=== PATIENT | female | born 1945 | race Caucasian/White ===

== ENCOUNTER → 2016-10-15 | Outpatient (CLI) | payer MEDICAID, MEDICARE | LOC: RAD 12:27 | PROVIDERS: ATTEND Internal Medicine Endocrinology, Diabetes & Metabolism | DX: R10.10 Upper abdominal pain, unspecified (principal) | CPT/HCPCS: 74150 ==

== ENCOUNTER 2017-03-23 10:34 | Day surgery (SDC) | payer MEDICARE ==
[~2017-03-23 10:34] MED LIST: PROPOFOL INJ 200 MG/20 ML VIAL IV ONE
[2017-03-23 12:55] VITALS: BP 111/47
--- NOTE | 2017-03-23 13:22 | Operative Report ---
Operative Report DATE OF SURGERY: 03/23/17 Operative Report: The risks, benefits and alternatives of the procedure including risks of bleeding, perforation requiring surgery are explained to the patient detail and informed consent was obtained. Patient was taken back to the endoscopy suite and placed in the left, lateral decubital position. Timeout was called. Propofol medications administered. A rectal examination was done which did not reveal any masses, tears or fissures. An Olympus videoscope was inserted into the patient's rectum. Scope was then carefully advanced all the way to the cecum. The cecum was identified by the usual anatomical landmarks including the ileocecal valve as well as appendiceal office. Photodocumentation is obtained. Prep is good. Scope was then sequentially pulled back via the various segments of the colon including the ascending colon, hepatic flexure, transverse colon, splenic flexure, descending colon finding to the rectosigmoid portions of the colon. Retroflexion maneuver was performed. PREOPERATIVE DIAGNOSIS: Personal history of a polyp. POSTOPERATIVE DIAGNOSIS: Polyp noted in the area of the sigmoid area status post snare polypectomy and retrieved. Diverticulosis. Internal hemorrhoids OPERATION: Colonoscopy with snare polypectomy SURGEON: DANIEL PARRA ANESTHESIA: LMAC TISSUE REMOVED OR ALTERED: Polyp was retrieved COMPLICATIONS: None. ESTIMATED BLOOD LOSS: None. INTRAOPERATIVE FINDINGS: As described above. PROCEDURE: Patient tolerated the procedure well. No immediate postprocedure complications are noted. Patient discharged in good condition. Discharge date 03/23/2017. Discharge diet: Regular. Discharge activity: Regular. 2-3 week follow-up to discuss findings. Patient is instructed to call the office or proceed to the emergency room should there be any further problems or questions. We will wait on pathology. 3-5 year surveillance colonoscopy.
== END 2017-03-23 12:40 | disposition home or self-care (01) ==
LOC: END 10:34
PROVIDERS: ATTEND Internal Medicine Gastroenterology
PROC: 0DBN8ZX Excision of Sigmoid Colon, Via Natural or Artificial Opening Endoscopic, Diagnostic (ICD-10-PCS; principal; 2017-03-23 14:30)
DX: D12.5 Benign neoplasm of sigmoid colon (principal); K57.30 Diverticulosis of large intestine without perforation or abscess without bleeding; K64.8 Other hemorrhoids; E11.9 Type 2 diabetes mellitus without complications; E03.9 Hypothyroidism, unspecified; Z87.891 Personal history of nicotine dependence; Z79.84 Long term (current) use of oral hypoglycemic drugs; Z79.4 Long term (current) use of insulin; Z79.899 Other long term (current) drug therapy
CPT/HCPCS: 45385; 82962; 88305 ×2; J2704; 810

== ENCOUNTER 2017-12-16 19:44 | Inpatient (IN) | payer MEDICARE, MEDICAID ==
--- NOTE | 2017-12-16 20:45 | ER Document Report ---
ED General - General Chief Complaint: Fever Stated Complaint: FEVER Time Seen by Provider: 12/16/17 20:04 Mode of Arrival: Wheelchair Information source: Patient, Relative Notes: Patient is a 72-year-old female with active ALL currently being treated by Dr. Morales as well as at [facility]. Patient reports that she has had weakness with a wet cough since Thursday. Reports that today she spiked a temperature of 99.9. Patient denies any pain, nausea, vomiting or diarrhea. Patient's family member reports that she had blood work here at [facility] yesterday and was transfused 2 units of packed red cells. Patient's family further states that her oncologist at [facility] called and told her to withhold all chemo at this point until her blood levels are stabilized. TRAVEL OUTSIDE OF THE [place] IN LAST 30 DAYS: No - Related Data Allergies/Adverse Reactions: No Known Allergies Allergy (Verified 03/23/17 11:21) Past Medical History - General Information source: Patient, Relative - Social History Smoking Status: Never Smoker Cigarette use (# per day): No Chew tobacco use (# tins/day): No Smoking Education Provided: No Frequency of alcohol use: None Drug Abuse: None Family History: Reviewed & Not Pertinent - Past Medical History Cardiac Medical History: Denies: Hx Coronary Artery Disease, Hx Heart Attack, Hx Hypertension Pulmonary Medical History: Denies: Hx Asthma, Hx Bronchitis, Hx COPD, Hx Pneumonia Neurological Medical History: Denies: Hx Cerebrovascular Accident, Hx Seizures Malignancy Medical History: Reports: Other - ALL Musculoskeltal Medical History: Denies Hx Arthritis - Immunizations Hx Diphtheria, Pertussis, Tetanus Vaccination: No Hx Pneumococcal Vaccination: 04/26/17 Physical Exam - Vital signs Vitals: Temp Pulse Resp BP Pulse Ox 98.2 F 73 16 149/64 H 98 12/16/17 19:49 12/16/17 19:49 12/16/17 19:49 12/16/17 19:49 12/16/17 19:49 Course - Re-evaluation Re-evalutation: Patient is a 72-year-old female is a well-appearing, patient of Dr. Morales currently being treated for ALL. Patient comes in for complaints of weakness with wet cough x 2 days as well as a temperature at home of 99.9 that was started today. Patient placed on neutopenic precautions on arrival to ED. Patient's initial CBC reveals a white blood count of 0.6 and a platelet count of 29 which are both similar to labs drawn 2 days ago at our facility. Patient' s chest x-ray is unremarkable with no consolidations. EKG reveals a sinus rhythm, normal axis, with no ST segment deviation and is unchanged from previous EKG on record. Patient has remained remained afebrile and hemodynamically stable during her emergency department stay. Will give patient oral potassium replacement for a potassium of 3.1. Spoke with Dr. Morales who recommends that patient be started on imipenem pending results of urine culture and blood culture. Dr. Rhoades would like the patient to be admitted under the hospitalist service and she will consult. Hospitalist , Dr. Sutherland agrees to admit patient to his service. - Vital Signs Vital signs: Temp Pulse Resp BP Pulse Ox 98.6 F 62 16 119/55 L 99 12/18/17 03:09 12/18/17 03:09 12/18/17 03:09 12/18/17 03:09 12/18/17 03:09 - Laboratory Result Diagrams: 12/17/17 04:10 12/17/17 04:10 Laboratory results interpreted by me: 12/16/17 12/16/17 12/16/17 21:15 22:20 22:20 WBC 0.6 L* RBC 3.06 L Hgb 9.9 L Hct 28.3 L RDW 19.0 H Plt Count 29 L* Seg Neutrophils % 17.7 L Lymphocytes % 65.4 H Eosinophils % 11.7 H Basophils % 2.1 H Absolute Neutrophils 0.1 L Absolute Lymphocytes 0.4 L Absolute Monocytes 0.0 L VBG pH Potassium 3.1 L Glucose 273 H POC Glucose 304 H Lactic Acid Magnesium Total Protein 5.7 L Albumin 3.2 L Urine Glucose (UA) Urine Urobilinogen 12/16/17 12/16/17 12/16/17 22:20 22:20 22:20 WBC RBC Hgb Hct RDW Plt Count Seg Neutrophils % Lymphocytes % Eosinophils % Basophils % Absolute Neutrophils Absolute Lymphocytes Absolute Monocytes VBG pH 7.45 H Potassium Glucose POC Glucose Lactic Acid 2.8 H Magnesium Total Protein Albumin Urine Glucose (UA) >=500 H Urine Urobilinogen 4.0 H 12/16/17 22:20 WBC RBC Hgb Hct RDW Plt Count Seg Neutrophils % Lymphocytes % Eosinophils % Basophils % Absolute Neutrophils Absolute Lymphocytes Absolute Monocytes VBG pH Potassium Glucose POC Glucose Lactic Acid Magnesium 1.5 L Total Protein Albumin Urine Glucose (UA) Urine Urobilinogen Discharge - Discharge Clinical Impression: Neutropenia Qualifiers: Neutropenia type: unspecified Qualified Code(s): D70.9 - Neutropenia, unspecified Condition: Stable Disposition: ADMITTED INPATIENT Admitting Provider: Hospitalist Unit Admitted: Telemetry
--- NOTE | 2017-12-16 21:01 | RADIOLOGY REPORT (SQ) ---
EXAM DESCRIPTION: CHEST SINGLE VIEW COMPLETED DATE/TIME: 12/16/2017 8:34 pm REASON FOR STUDY: fever COMPARISON: None. EXAM PARAMETERS: NUMBER OF VIEWS: One view. TECHNIQUE: Single frontal radiographic view of the chest acquired. RADIATION DOSE: NA LIMITATIONS: None. FINDINGS: LUNGS AND PLEURA: No opacities, masses or pneumothorax. No pleural effusion. MEDIASTINUM AND HILAR STRUCTURES: No masses. Contour normal. HEART AND VASCULAR STRUCTURES: Heart normal in size. Normal vasculature. BONES: No acute findings. HARDWARE: Vascular access port. OTHER: No other significant finding. IMPRESSION: NO ACUTE RADIOGRAPHIC FINDING IN THE CHEST. TECHNICAL DOCUMENTATION: JOB ID: [id number] [employer]- All Rights Reserved Reading location - IP/workstation name: [email or web address]
[2017-12-16 22:42] LABS: HEMATOCRIT 28.3 % (36.0-47.0); HEMOGLOBIN 9.9 g/dL (12.0-15.5); MEAN CORPUSCULAR HEMOGLOBIN 32.4 pg (27.0-33.4); RED BLOOD COUNT 3.06 10^6/uL (3.72-5.28)
[2017-12-16 22:45] LABS: APPEARANCE,URINE CLEAR; BILIRUBIN,URINE NEGATIVE (NEGATIVE); COLOR,URINE YELLOW; GLUCOSE, URINE >=500 mg/dL (NEGATIVE); INTERNATIONAL RATION (INR) 0.93; KETONES,URINE NEGATIVE (NEGATIVE); LEUKOCYTE ESTERASE,URINE NEGATIVE (NEGATIVE); NITRITE,URINE NEGATIVE (NEGATIVE); PROTEIN,URINE NEGATIVE (NEGATIVE); PROTHROMBIN TIME 12.9 SEC (11.4-15.4); URINE SPECIFIC GRAVITY 1.021; VENOUS BLOOD BASE EXCESS 1.2 mmol/L; VENOUS BLOOD HCO3 25.1 mmol/L (20-32); VENOUS BLOOD PCO2 37.1 mmHg (35-63); VENOUS BLOOD PH 7.45 (7.30-7.42)
[2017-12-16 23:01] LABS: ALANINE AMINOTRANSFERASE 52 U/L (9-52); ALBUMIN 3.2 g/dL (3.5-5.0); ALKALINE PHOSPHATASE 77 U/L (38-126); ANION GAP 11 (5-19); ASPARTATE AMINO TRANSFERASE 27 U/L (14-36); BILIRUBIN,DIRECT 0.3 mg/dL (0.0-0.4); BILIRUBIN,TOTAL 1.3 mg/dL (0.2-1.3); BLOOD UREA NITROGEN 9 mg/dL (7-20); CALCIUM 8.9 mg/dL (8.4-10.2); CARBON DIOXIDE 27 mmol/L (22-30); CHLORIDE 100 mmol/L (98-107); GLUCOSE 273 mg/dL (75-110); POTASSIUM 3.1 mmol/L (3.6-5.0); SODIUM 137.7 mmol/L (137-145); TOTAL PROTEIN 5.7 g/dL (6.3-8.2)
[2017-12-16 23:03] LABS: ABSOLUTE LYMPHOCYTES (AUTO) 0.4 10^3/uL (0.5-4.7); ABSOLUTE NEUT (AUTO) 0.1 10^3/uL (1.7-8.2); BASOPHILS % (AUTO) 2.1 % (0-2); EOSINOPHILS % (AUTO) 11.7 % (0-6); LYMPHOCYTES % (AUTO) 65.4 % (13-45); MONOCYTES % (AUTO) 3.1 % (3-13); SEGMENTED NEUTROPHILS % (AUTO) 17.7 % (42-78); TOTAL CELLS COUNTED % (AUTO) 100 %
[2017-12-16 23:04] LABS: ABSOLUTE EOSINOPHILS # (AUTO) 0.1 10^3/uL (0.0-0.6)
[2017-12-16 23:15] LABS: WHITE BLOOD COUNT 0.6 10^3/uL (4.0-10.5)
[2017-12-16 23:16] LABS: MEAN CORPUSCULAR VOLUME 93 fl (80-97); PLATELET COUNT 29 10^3/uL (150-450)
[2017-12-16] MEDS ORDERED: IMIPENEM/CILASTATIN SODIUM INJ 500 MG VIAL IV ONE (23:23)
[2017-12-17] MEDS ORDERED: POTASSIUM CHLORIDE 10 MEQ TABLET.SA PO ONE (00:46)
[2017-12-17] MEDS ORDERED: IPRATROPIUM/ALBUTEROL 0.5-2.5 MG/3 ML AMPUL NEB PRN (01:24)
[2017-12-17] MEDS ORDERED: MAG HYDROX/AL HYDROX/SIMETH SUSP 30 ML UDCUP PO PRN (01:24)
[2017-12-17] MEDS ORDERED: GLUCAGON,HUMAN RECOMB 1 MG INJ IM PRN (01:28)
[2017-12-17] MEDS ORDERED: DEXTROSE 50%-WATER 25 GM/50 ML DISP.SYRIN IV PRN ×2 (01:28)
[2017-12-17] MEDS ORDERED: INSULIN LISPRO 100 UNIT/ML 3 ML VIAL SUBCUT PRN (01:28)
[2017-12-17] MEDS ORDERED: DEXTROSE 40% GEL 15 GM TUBE PO PRN ×2 (01:28)
[2017-12-17] MEDS ORDERED: NORMAL SALINE 1000 ML 1,000 ML IV SCH (01:30)
[2017-12-17] MEDS ORDERED: IMIPENEM/CILASTATIN SODIUM INJ 500 MG VIAL IV PRN (01:54)
[2017-12-17] MEDS ORDERED: POTASSI CL 20 MEQ/50 ML RIDER 20 MEQ/50 ML RTUPB IV SCH ×3 (02:00→05:45)
[2017-12-17] MEDS: MAGNESIUM SULFATE/D5W 1 GM/100 ML RTUPB IV SCH ×4 (02:22→10:07)
[2017-12-17 04:43] LABS: HEMOGLOBIN 10.1 g/dL (12.0-15.5); MEAN CORPUSCULAR HEMOGLOBIN 32.3 pg (27.0-33.4); MEAN CORPUSCULAR HGB CONC 34.7 g/dL (32.0-36.0); MEAN CORPUSCULAR VOLUME 93 fl (80-97); RED BLOOD COUNT 3.12 10^6/uL (3.72-5.28); RED CELL DISTRIBUTION WIDTH 18.8 % (11.5-14.0)
[2017-12-17 04:46] LABS: ANION GAP 12 (5-19); BLOOD UREA NITROGEN 7 mg/dL (7-20); CALCIUM 8.8 mg/dL (8.4-10.2); CARBON DIOXIDE 27 mmol/L (22-30); CHLORIDE 100 mmol/L (98-107); GLUCOSE 319 mg/dL (75-110); POTASSIUM 3.4 mmol/L (3.6-5.0); SODIUM 138.5 mmol/L (137-145)
[2017-12-17 05:08] LABS: ABSOLUTE LYMPHOCYTES# (MANUAL) 0.3 10^3/uL (0.5-4.7); ABSOLUTE NEUTROPHILS# (MANUAL) 0.1 10^3/uL (1.7-8.2); BASOPHILS % (MANUAL) 0 % (0-2); EOSINOPHILS % (MANUAL) 2 % (0-6); LYMPHOCYTES % (MANUAL) 68 % (13-45); MONOCYTES % (MANUAL) 4 % (3-13); SEGMENTED NEUTROPHILS % (MAN) 26 % (42-78); TOTAL CELLS COUNTED 50
[2017-12-17 05:11] LABS: ANISOCYTOSIS 2+; OVALOCYTES 1+; PLATELET COMMENT DECREASED; POIKILOCYTOSIS 1+; POLYCHROMASIA SLIGHT
[2017-12-17] MEDS ORDERED: IMIPENEM/CILASTATIN SODIUM INJ 500 MG VIAL IV ONE (05:11)
[2017-12-17 05:12] LABS: PLATELET COUNT 31 10^3/uL (150-450); WHITE BLOOD COUNT 0.5 10^3/uL (4.0-10.5)
[2017-12-17] MEDS ORDERED: CHLORPHENIRAMINE MALEATE 4 MG TABLET PO ONE (05:40)
[2017-12-17] MEDS: HEPARIN SOD (PORCINE) 5,000 UNIT/ML 1 ML SYRINGE SUBCUT SCH ×3 (05:44→21:04)
--- NOTE | 2017-12-17 05:52 | PDOC H&P ---
History of Present Illness Admission Date/PCP: 12/17/17 00:50 GEORGE SOUSA MD Patient complains of: Fever History of Present Illness: JIM ACEVEDO is a 72 year old female with a past medical history of ALL, anemia, tobacco dependence and diabetes. Patient was seen at [facility] yesterday for transfusion of 2 units of packed red blood cells for hemoglobin of 8.4, currently 10.1. She presents with 48 hours of generalized weakness, rhinorrhea, postnasal drip and nonproductive cough. She she has now developed a fever of 100.0 prompting evaluation emergency room where she is found to have neutropenia, hypokalemia and sepsis with an elevated lactic acid. She started on empiric antibiotics and IV fluid challenge referred to the hospitalist for admission. Past Medical History Cardiac Medical History: Denies: Coronary Artery Disease, Myocardial Infarction, Hypertension Pulmonary Medical History: Denies: Asthma, Bronchitis, Chronic Obstructive Pulmonary Disease (COPD), Pneumonia Neurological Medical History: Denies: Seizures Endocrine Medical History: Reports: Diabetes Mellitus Type 2 Malignancy Medical History: Reports: Other - ALL Musculoskeltal Medical History: Denies: Arthritis Psychiatric Medical History: Denies: Depression Hematology: Reports: Anemia Past Surgical History Past Surgical History: Reports: Cholecystectomy Social History Information Source: Patient Lives with: Family Smoking Status: Never Smoker Frequency of Alcohol Use: None Hx Recreational Drug Use: No Drugs: None - Advance Directive Resuscitation Status: Full Code Family History Family History: COPD Parental Family History Reviewed: Yes Children Family History Reviewed: Yes Sibling(s) Family History Reviewed.: Yes Medication/Allergy Home Medications: Atorvastatin Calcium [Lipitor 10 mg Tablet] 10 mg PO QHS 03/23/17 Insulin Aspart [Novolog Flexpen] 10 units SQ BID 03/23/17 Insulin Detemir [Levemir Insulin 300 Units/3 ml Insuln.pen] 38 unit SUBCUT QAM 03/23/17 Levothyroxine Sodium 25 mcg PO DAILY 03/23/17 Lisinopril [Prinivil 2.5 mg Tablet] 2.5 mg PO DAILY 03/23/17 Metformin HCl [Glucophage] 1,000 mg PO BID 03/23/17 Allergies/Adverse Reactions: No Known Allergies Allergy (Verified 03/23/17 11:21) Review of Systems Constitutional: PRESENT: as per HPI, chills, fatigue, fever(s) Eyes: ABSENT: visual disturbances Ears: ABSENT: hearing changes Nose, Mouth, and Throat: ABSENT: headache(s), sore throat, vertigo Cardiovascular: ABSENT: chest pain, dyspnea on exertion, edema, orthropnea, palpitations Respiratory: PRESENT: as per HPI, cough. ABSENT: hemoptysis, sputum Gastrointestinal: ABSENT: abdominal pain, constipation, diarrhea, hematemesis, hematochezia, nausea, vomiting Genitourinary: ABSENT: dysuria, hematuria Musculoskeletal: ABSENT: joint swelling Integumentary: ABSENT: rash, wounds Neurological: ABSENT: abnormal gait, abnormal speech, confusion, dizziness, focal weakness, syncope Psychiatric: ABSENT: anxiety, depression, homidical ideation, suicidal ideation Endocrine: ABSENT: cold intolerance, heat intolerance, polydipsia, polyuria Hematologic/Lymphatic: ABSENT: easy bleeding, easy bruising Physical Exam Vital Signs: Temp Pulse Resp BP Pulse Ox 97.7 F 56 L 17 158/73 H 100 12/17/17 03:21 12/17/17 03:21 12/17/17 03:21 12/17/17 03:21 12/17/17 03:21 General appearance: PRESENT: no acute distress, well-developed, well-nourished Head exam: PRESENT: atraumatic, normocephalic Eye exam: PRESENT: conjunctiva pink, EOMI, PERRLA. ABSENT: scleral icterus Ear exam: PRESENT: normal external ear exam Mouth exam: PRESENT: moist, tongue midline Neck exam: ABSENT: carotid bruit, JVD, lymphadenopathy, thyromegaly Respiratory exam: PRESENT: clear to auscultation kristi. ABSENT: rales, rhonchi, wheezes Cardiovascular exam: PRESENT: RRR. ABSENT: diastolic murmur, rubs, systolic murmur Pulses: PRESENT: normal dorsalis pedis pul Vascular exam: PRESENT: normal capillary refill GI/Abdominal exam: PRESENT: normal bowel sounds, soft. ABSENT: distended, guarding, mass, organolmegaly, rebound, tenderness Rectal exam: PRESENT: deferred Extremities exam: PRESENT: full ROM. ABSENT: calf tenderness, clubbing, pedal edema Neurological exam: PRESENT: alert, awake, oriented to person, oriented to place , oriented to time, oriented to situation, CN II-XII grossly intact. ABSENT: motor sensory deficit Psychiatric exam: PRESENT: appropriate affect, normal mood. ABSENT: homicidal ideation, suicidal ideation Skin exam: PRESENT: dry, intact, warm. ABSENT: cyanosis, rash Results Laboratory Results: 12/17/17 04:10 12/17/17 04:10 12/17/17 12/17/17 12/17/17 04:10 04:10 04:10 WBC 0.5 L* RBC 3.12 L Hgb 10.1 L Hct 29.0 L MCV 93 MCH 32.3 MCHC 34.7 RDW 18.8 H Plt Count 31 L Seg Neutrophils % Not Reportable Lymphocytes % Not Reportable Monocytes % Not Reportable Eosinophils % Not Reportable Basophils % Not Reportable Absolute Neutrophils Not Reportable Absolute Lymphocytes Not Reportable Absolute Monocytes Not Reportable Absolute Eosinophils Not Reportable Absolute Basophils Not Reportable Sodium 138.5 Potassium 3.4 L Chloride 100 Carbon Dioxide 27 Anion Gap 12 BUN 7 Creatinine 0.57 Est GFR ( Amer) > 60 Est GFR (Non-Af Amer) > 60 Glucose 319 H Lactic Acid 2.6 H Calcium 8.8 Impressions: Chest X-Ray 12/16/17 20:08 IMPRESSION: NO ACUTE RADIOGRAPHIC FINDING IN THE CHEST. Assessment & Plan - Diagnosis (1) Neutropenia Qualifiers: Neutropenia type: unspecified Qualified Code(s): D70.9 - Neutropenia, unspecified Is this a current diagnosis for this admission?: Yes Plan: Telemetry admission, neutropenic precautions, empiric antibiotics initiated imipenem follow-up CBC and oncology consult (2) Acute sinusitis Is this a current diagnosis for this admission?: Yes Plan: Flonase, chlorpheniramine, albuterol and Atrovent as needed empiric antibiotics initiated (3) Hypokalemia Is this a current diagnosis for this admission?: Yes Plan: Follow-up magnesium replete as needed follow-up chemistry (4) Diabetes Is this a current diagnosis for this admission?: Yes Plan: Resume two thirds of long-acting insulin with Humalog sliding scale - Time Time Spent: 50 to 70 Minutes - Inpatient Certification Medical Necessity: Need Close Monitoring Due to Risk of Patient Decompensation
[2017-12-17] MEDS ORDERED: FLUTICASONE NASAL SPRAY 50 MCG/SPRY 120 SPRAY/16 GM NASL ONE (06:00)
[2017-12-17] MEDS ORDERED: IMIPENEM/CILASTATIN SODIUM 1,000 MG in NORMAL SALINE 250 ML IV SCH ×2 (06:00→09:00)
[2017-12-17] MEDS ORDERED: CHLORPHENIRAMINE MALEATE 4 MG TABLET ONE (06:17)
[2017-12-17] MEDS ORDERED: FLUTICASONE NASAL SPRAY 50 MCG/SPRY 120 SPRAY/16 GM ONE (06:17)
--- NOTE | 2017-12-17 07:43 | EKG REPORT ---
SEVERITY:- NORMAL ECG - SINUS RHYTHM : Confirmed by: Bairon Urrutia MD 17-Dec-2017 07:42:35
[2017-12-17] MEDS ORDERED: POTASSIUM CHLORIDE 20 MEQ/50 ML RTU IV ONE (08:00)
[2017-12-17] MEDS: LISINOPRIL 5 MG TABLET PO SCH (09:56)
[2017-12-17] MEDS: LEVOTHYROXINE SODIUM 0.025 MG TABLET PO SCH (09:57)
[2017-12-17] MEDS ORDERED: INSULIN DETEMIR 100 UNIT/ML 3 ML PEN SUBCUT SCH (10:00)
[2017-12-17] MEDS: IMIPENEM/CILASTATIN SODIUM 500 MG in NORMAL SALINE 100 ML IV SCH ×3 (10:53→20:57)
--- NOTE | 2017-12-17 11:09 | PDOC CONSULTATION ---
Consultation Consult Date: 12/17/17 Consult reason:: Hematology/Oncology consultation is requested for patient with ALL and neutropenic fever. History of Present Illness Admission Date/PCP: 12/17/17 00:50 GEORGE SOUSA MD History of Present Illness: JIM ACEVEDO is a 72 year old female who was diagnosed with ALL 06/28/2017. It is [place] Chromosome negative. She has been receiving treatment by Dr. Chandra at [facility] and had been on clinical trial until a few months ago. She received a complete remission after her induction chemo, but had a reaction during part of her treatment, thought to be due to Intrathecal Methotrexate. She decided to come off trial and have consolidation chemotherapy. She received POMP chemotherapy (Vincristine, Prednisone, 6-MP, and Methotrexate) around 12/09/2017. She returned for blood work on 12/14/2017 and had WBC count of 0.4 HGB 8.1 and PLT 38. She was given out patient blood transfusion. She presented to the ED yesterday with low-grade fever and weakness. She has been admitted for neutropenic fever and started on Imipenum. Today, she states that she is feeling OK. Her MTX and 6-MP have been on hold for 2 days. Past Medical History Cardiac Medical History: Reports: Hyperlipidema, Hypertension Denies: Coronary Artery Disease, Myocardial Infarction Pulmonary Medical History: Denies: Asthma, Bronchitis, Chronic Obstructive Pulmonary Disease (COPD), Pneumonia Neurological Medical History: Denies: Seizures Endocrine Medical History: Reports: Diabetes Mellitus Type 2, Hypothyroidism, Other - pancreatitis Malignancy Medical History: Reports: Other - ALL Musculoskeltal Medical History: Denies: Arthritis Psychiatric Medical History: Denies: Depression Hematology: Reports: Anemia Past Surgical History Past Surgical History: Reports: Cholecystectomy, Hysterectomy, Tubal Ligation, Other - Pancreatic stent, port placement. Social History Occupation: Retired manager hospital. Lives with: Family Smoking Status: Never Smoker Frequency of Alcohol Use: None Hx Recreational Drug Use: No Drugs: None - Advance Directive Resuscitation Status: Full Code Family History Family History: CAD, COPD Parental Family History Reviewed: Yes - Mother with CAD Children Family History Reviewed: Yes Sibling(s) Family History Reviewed.: Yes - Sister with CAD Medication/Allergy Home Medications: Atorvastatin Calcium [Lipitor 10 mg Tablet] 10 mg PO QHS 12/17/17 Insulin Aspart [Novolog Flexpen] 10 units SQ MEALS 12/17/17 Insulin Detemir [Levemir Flextouch] 35 units SQ QHS 12/17/17 Levothyroxine Sodium [Synthroid 0.025 mg Tablet] 0.025 mg PO Q6AM 12/17/17 Lisinopril [Prinivil 2.5 mg Tablet] 2.5 mg PO DAILY 12/17/17 Mercaptopurine [Purinethol 50 mg Tablet] 100 mg PO QPM 12/17/17 Methotrexate Sodium [Methotrexate] 6 tab PO WE@1000 12/17/17 Prednisone 4 tab PO Q28D 12/17/17 Allergies/Adverse Reactions: No Known Allergies Allergy (Verified 03/23/17 11:21) Review of Systems Constitutional: PRESENT: fatigue, fever(s) Eyes: ABSENT: visual disturbances Ears: ABSENT: hearing changes Nose, Mouth, and Throat: ABSENT: sore throat Cardiovascular: ABSENT: chest pain Respiratory: ABSENT: dyspnea Gastrointestinal: ABSENT: constipation, nausea Genitourinary: ABSENT: dysuria Integumentary: ABSENT: rash Neurological: ABSENT: frequent falls, memory loss Hematologic/Lymphatic: ABSENT: lymphadenopathy Physical Exam Vital Signs: Temp Pulse Resp BP Pulse Ox 98.7 F 55 L 16 122/53 L 99 12/17/17 07:12 12/17/17 07:12 12/17/17 07:12 12/17/17 07:12 12/17/17 07:12 Intake & Output 12/16/17 12/17/17 12/18/17 06:59 06:59 06:59 Intake Total 1050 Balance 1050 Weight 57.9 kg General appearance: PRESENT: no acute distress, well-developed, well-nourished Exam: 72 year old female with family at bedside. Head exam: PRESENT: atraumatic, normocephalic Ear exam: PRESENT: normal external ear exam Mouth exam: PRESENT: moist Teeth exam: PRESENT: edentulous Throat exam: ABSENT: post pharyngeal erythema Neck exam: ABSENT: lymphadenopathy, tenderness, thyromegaly Respiratory exam: PRESENT: clear to auscultation kristi, unlabored Cardiovascular exam: PRESENT: RRR. ABSENT: systolic murmur GI/Abdominal exam: PRESENT: normal bowel sounds, soft. ABSENT: organolmegaly, tenderness Extremities exam: ABSENT: pedal edema Musculoskeletal exam: PRESENT: normal inspection Neurological exam: PRESENT: alert, awake. ABSENT: motor sensory deficit Psychiatric exam: PRESENT: appropriate affect Focused psych exam: ABSENT: psychomotor agitation Skin exam: PRESENT: normal color Results Laboratory Results: 12/17/17 04:10 12/17/17 04:10 12/17/17 12/17/17 12/17/17 04:10 04:10 04:10 WBC 0.5 L* RBC 3.12 L Hgb 10.1 L Hct 29.0 L MCV 93 MCH 32.3 MCHC 34.7 RDW 18.8 H Plt Count 31 L Seg Neutrophils % Not Reportable Lymphocytes % Not Reportable Monocytes % Not Reportable Eosinophils % Not Reportable Basophils % Not Reportable Absolute Neutrophils Not Reportable Absolute Lymphocytes Not Reportable Absolute Monocytes Not Reportable Absolute Eosinophils Not Reportable Absolute Basophils Not Reportable Sodium 138.5 Potassium 3.4 L Chloride 100 Carbon Dioxide 27 Anion Gap 12 BUN 7 Creatinine 0.57 Est GFR ( Amer) > 60 Est GFR (Non-Af Amer) > 60 Glucose 319 H Lactic Acid 2.6 H Calcium 8.8 Impressions: Chest X-Ray 12/16/17 20:08 IMPRESSION: NO ACUTE RADIOGRAPHIC FINDING IN THE CHEST. Status: Image reviewed by me Assessment & Plan - Diagnosis (1) ALL (acute lymphoblastic leukemia) Qualifiers: Leukemia Active/Remission status: in remission Qualified Code(s): C91.01 - Acute lymphoblastic leukemia, in remission Is this a current diagnosis for this admission?: Yes Plan: Patient is receiving Consolidation chemotherapy. Most recent Bone Marrow Biopsy showed no evidence of the leukemia. Plans are for monthly chemo over the next 1-2 years. (2) Neutropenic fever Is this a current diagnosis for this admission?: Yes Plan: All cultures are NGTD. She is on Imipenum. All of her chemo drugs are on hold. Hope for resolution of her blood counts within the next few days. If not , consider bone marrow biopsy. - Plan Summary Plan Summary: Patient was discussed with Zuleyka Maguire, hospitalist. I have encouraged her to eat and walk in hallway. She is on neutropenic precautions. Will transfusion if needed and support. Please call me with questions.
--- NOTE | 2017-12-17 12:19 | PDOC PROGRESS REPORT ---
Subjective Progress Note for:: 12/17/17 Subjective:: The patient is an extremely pleasant 72-year-old female who currently is undergoing treatment for ALL at [facility]. She was admitted to the hospital with neutropenic fever. The patient states that she had had a cold and a cough for a few days prior to admission. She was admitted to the hospital and started on broad-spectrum antibiotics. She has been seen by oncology this morning as well. When I saw the patient today she is resting comfortably in the bed. She denies fever or shaking chills. No chest pain or heart palpitations. She does have a little bit of sinus drainage and a dry cough. No nausea vomiting or diarrhea. No abdominal pain. No dysuria, frequency or hematuria Reason For Visit: NEUTROPENIC FEVER, ALL HYPOKALEMIA Physical Exam Vital Signs: Temp Pulse Resp BP Pulse Ox 98.7 F 52 L 16 122/53 L 99 12/17/17 07:12 12/17/17 11:57 12/17/17 11:57 12/17/17 07:12 12/17/17 11:57 Intake & Output 12/16/17 12/17/17 12/18/17 06:59 06:59 06:59 Intake Total 1050 Balance 1050 Weight 57.9 kg General appearance: PRESENT: no acute distress - His, well-developed, well- nourished Head exam: PRESENT: atraumatic, normocephalic Mouth exam: PRESENT: moist, tongue midline Neck exam: ABSENT: carotid bruit, JVD, lymphadenopathy, thyromegaly Respiratory exam: PRESENT: clear to auscultation kristi. ABSENT: rales, rhonchi, wheezes Cardiovascular exam: PRESENT: RRR. ABSENT: diastolic murmur, rubs, systolic murmur GI/Abdominal exam: PRESENT: normal bowel sounds, soft. ABSENT: distended, guarding, mass, organolmegaly, rebound, tenderness Rectal exam: PRESENT: deferred Neurological exam: PRESENT: alert, awake, oriented to person, oriented to place , oriented to time, oriented to situation, CN II-XII grossly intact. ABSENT: motor sensory deficit Psychiatric exam: PRESENT: appropriate affect, normal mood. ABSENT: homicidal ideation, suicidal ideation Skin exam: PRESENT: dry, intact, warm. ABSENT: cyanosis, rash Results Laboratory Results: 12/17/17 04:10 05/24/18 04:10 12/17/17 12/17/17 12/17/17 04:10 04:10 04:10 WBC 0.5 L* RBC 3.12 L Hgb 10.1 L Hct 29.0 L MCV 93 MCH 32.3 MCHC 34.7 RDW 18.8 H Plt Count 31 L Seg Neutrophils % Not Reportable Lymphocytes % Not Reportable Monocytes % Not Reportable Eosinophils % Not Reportable Basophils % Not Reportable Absolute Neutrophils Not Reportable Absolute Lymphocytes Not Reportable Absolute Monocytes Not Reportable Absolute Eosinophils Not Reportable Absolute Basophils Not Reportable Sodium 138.5 Potassium 3.4 L Chloride 100 Carbon Dioxide 27 Anion Gap 12 BUN 7 Creatinine 0.57 Est GFR ( Amer) > 60 Est GFR (Non-Af Amer) > 60 Glucose 319 H Lactic Acid 2.6 H Calcium 8.8 Impressions: Chest X-Ray 12/16/17 20:08 IMPRESSION: NO ACUTE RADIOGRAPHIC FINDING IN THE CHEST. Assessment & Plan - Diagnosis (1) Neutropenic fever Is this a current diagnosis for this admission?: Yes Plan: The patient's fever is resolving. This is due to her treatment with chemotherapy as well as her leukemia. Oncology is following and I certainly appreciate their input. The recommendation is for continued broad-spectrum IV antibiotics with imipenem (2) Acute sinusitis Is this a current diagnosis for this admission?: Yes Plan: Continue imipenem. This is the first full day of treatment. She is much improved (3) Acute lymphoblastic leukemia (ALL) Is this a current diagnosis for this admission?: Yes Plan: She is undergoing treatment directed by [facility]. She has been seen by Dr Morales who is trying to get records. (4) Pancytopenia Is this a current diagnosis for this admission?: Yes Plan: Due to her leukemia and treatment. She will have a CBC drawn in the morning (5) Diabetes Is this a current diagnosis for this admission?: Yes Plan: We have adjusted her medications here in the hospital. They were not entered correctly. She takes Levemir 30 units in the evening and 10 units 3 times daily before meals. We will also cover her with sliding scale insulin. (6) Hyperlipidemia Is this a current diagnosis for this admission?: Yes Plan: Continue home regimen (7) Hypokalemia Is this a current diagnosis for this admission?: Yes Plan: This is been repleted. She will have a level drawn in the morning. (8) Hypomagnesemia Is this a current diagnosis for this admission?: Yes Plan: This will be repleted today as well. She will have a level drawn in the morning. (9) Tobacco dependence Is this a current diagnosis for this admission?: Yes Plan: Certainly would be in her best interest to not smoke at this point. - Time Time Spent with patient: 25-34 minutes - Inpatient Certification Medical Necessity: Need for IV Antibiotics - Inpatient hospitalization remains necessary. Overall the patient has neutropenic fever. She is requiring broad- spectrum IV antibiotics. I suspect she will be in the hospital for another 24- 48 hours. She is improving rapidly., Other
[2017-12-17 12:47] LABS: PATH REVIEW PATHOLOGIST REVIEWED
[2017-12-17] MEDS: INSULIN LISPRO 100 UNIT/ML 3 ML VIAL SUBCUT SCH (18:40)
[2017-12-17] MEDS: ATORVASTATIN CALCIUM 10 MG TABLET PO SCH (21:00)
[2017-12-17] MEDS: INSULIN DETEMIR 100 UNIT/ML 3 ML PEN SUBCUT SCH (21:02)
[2017-12-17] MEDS: FLUTICASONE NASAL SPRAY 50 MCG/SPRY 120 SPRAY/16 GM NASL SCH (21:04)
[2017-12-18] MEDS: IMIPENEM/CILASTATIN SODIUM 500 MG in NORMAL SALINE 100 ML IV SCH ×4 (03:07→21:47)
[2017-12-18] MEDS: HEPARIN SOD (PORCINE) 5,000 UNIT/ML 1 ML SYRINGE SUBCUT SCH ×3 (04:29→22:56)
[2017-12-18 05:51] LABS: ABSOLUTE EOSINOPHILS # (AUTO) 0.1 10^3/uL (0.0-0.6); ABSOLUTE LYMPHOCYTES (AUTO) 0.3 10^3/uL (0.5-4.7); ABSOLUTE NEUT (AUTO) 0.1 10^3/uL (1.7-8.2); EOSINOPHILS % (AUTO) 11.9 % (0-6); HEMATOCRIT 28.2 % (36.0-47.0); LYMPHOCYTES % (AUTO) 66.5 % (13-45); MEAN CORPUSCULAR HEMOGLOBIN 32.6 pg (27.0-33.4); MEAN CORPUSCULAR HGB CONC 35.3 g/dL (32.0-36.0); MEAN CORPUSCULAR VOLUME 92 fl (80-97); MONOCYTES % (AUTO) 7.1 % (3-13); RED BLOOD COUNT 3.06 10^6/uL (3.72-5.28); RED CELL DISTRIBUTION WIDTH 18.3 % (11.5-14.0); SEGMENTED NEUTROPHILS % (AUTO) 12.5 % (42-78); TOTAL CELLS COUNTED % (AUTO) 100 %
[2017-12-18 06:00] LABS: ANION GAP 9 (5-19); BLOOD UREA NITROGEN 9 mg/dL (7-20); CALCIUM 8.8 mg/dL (8.4-10.2); CARBON DIOXIDE 27 mmol/L (22-30); CHLORIDE 106 mmol/L (98-107); GLUCOSE 174 mg/dL (75-110); POTASSIUM 4.1 mmol/L (3.6-5.0); SODIUM 141.9 mmol/L (137-145)
[2017-12-18 06:21] LABS: ANISOCYTOSIS 2+; PLATELET COMMENT DECREASED; PLATELET COUNT 30 10^3/uL (150-450); WHITE BLOOD COUNT 0.5 10^3/uL (4.0-10.5)
--- NOTE | 2017-12-18 08:52 | PDOC PROGRESS REPORT ---
Subjective Progress Note for:: 12/18/17 Subjective:: Patient feeling well this morning. She is dressed and ready to walk [place]. No new complaints. Reason For Visit: NEUTROPENIC FEVER, ALL HYPOKALEMIA Physical Exam Vital Signs: Temp Pulse Resp BP Pulse Ox 98.0 F 51 L 18 134/57 H 99 12/18/17 07:59 12/18/17 07:59 12/18/17 07:59 12/18/17 07:59 12/18/17 07:59 Intake & Output 12/17/17 12/18/17 12/19/17 06:59 06:59 06:59 Intake Total 1050 4467 Balance 1050 4467 Weight 57.9 kg 58.3 kg General appearance: PRESENT: no acute distress, well-nourished Exam: Afebrile since admission. Head exam: PRESENT: atraumatic Respiratory exam: PRESENT: clear to auscultation kristi, unlabored Cardiovascular exam: PRESENT: RRR Extremities exam: ABSENT: pedal edema Neurological exam: PRESENT: alert, awake. ABSENT: motor sensory deficit Psychiatric exam: PRESENT: appropriate affect Skin exam: PRESENT: normal color Results Laboratory Results: 12/18/17 04:20 12/18/17 04:20 12/18/17 12/18/17 04:20 04:20 WBC 0.5 L* RBC 3.06 L Hgb 10.0 L Hct 28.2 L MCV 92 MCH 32.6 MCHC 35.3 RDW 18.3 H Plt Count 30 L* Seg Neutrophils % 12.5 L Lymphocytes % 66.5 H Monocytes % 7.1 Eosinophils % 11.9 H Basophils % 2.0 Absolute Neutrophils 0.1 L Absolute Lymphocytes 0.3 L Absolute Monocytes 0.0 L Absolute Eosinophils 0.1 Absolute Basophils 0.0 Sodium 141.9 Potassium 4.1 Chloride 106 Carbon Dioxide 27 Anion Gap 9 BUN 9 Creatinine 0.62 Est GFR ( Amer) > 60 Est GFR (Non-Af Amer) > 60 Glucose 174 H Calcium 8.8 Magnesium 2.0 Impressions: Chest X-Ray 12/16/17 20:08 IMPRESSION: NO ACUTE RADIOGRAPHIC FINDING IN THE CHEST. Assessment & Plan - Diagnosis (1) ALL (acute lymphoblastic leukemia) Qualifiers: Leukemia Active/Remission status: in remission Qualified Code(s): C91.01 - Acute lymphoblastic leukemia, in remission Is this a current diagnosis for this admission?: Yes Plan: Currently, all chemotherapy is on hold. (2) Neutropenic fever Is this a current diagnosis for this admission?: Yes Plan: Fevers have resolved on Imipenum. Urine culture with E.coli and Group B strep. Await resolution of neutropenia, most likely secondary to her chemo. - Plan Summary Plan Summary: Patient doing well. I have encouraged good nutrition and ambulating in hallway. Continue neutropenic precautions. HGB and PLT appear stable. Transfuse as indicated.
[2017-12-18] MEDS: INSULIN LISPRO 100 UNIT/ML 3 ML VIAL SUBCUT SCH ×3 (09:07→17:56)
[2017-12-18] MEDS: LISINOPRIL 5 MG TABLET PO SCH (09:52)
[2017-12-18] MEDS: LEVOTHYROXINE SODIUM 0.025 MG TABLET PO SCH (09:53)
[2017-12-18] MEDS: FLUTICASONE NASAL SPRAY 50 MCG/SPRY 120 SPRAY/16 GM NASL SCH ×2 (09:53→21:48)
--- NOTE | 2017-12-18 12:36 | PDOC PROGRESS REPORT ---
Subjective Progress Note for:: 12/18/17 Subjective:: 72-year-old female who i [facility]urrently [facility] now [facility] to the hospital with neutropenic fever. The patient reported a cold and a cough for a few days prior to admission. She was started on broad-spectrum antibiotics and is being followed by oncology service. Urine culture currently growing E. coli and group B strep. Patient reports doing okay, no fever or chills, no nausea vomiting. She currently denies urinary symptoms, no dysuria or urinary frequency. She also has no polyuria or polydipsia. Reason For Visit: NEUTROPENIC FEVER, ALL HYPOKALEMIA Physical Exam Vital Signs: Temp Pulse Resp BP Pulse Ox 98.0 F 73 16 134/57 H 99 12/18/17 07:59 12/18/17 11:43 12/18/17 11:43 12/18/17 07:59 12/18/17 07:59 Intake & Output 12/17/17 12/18/17 12/19/17 06:59 06:59 06:59 Intake Total 1050 4467 Balance 1050 4467 Weight 57.9 kg 58.3 kg GEN: NAD, well-developed, well-nourished CV: RRR, NL S1S2 LUNGS: CTA bilaterally ABDOMEN Soft, NT, +BS EXTERMITIES: No e/c/c NEURO: Alert, oriented x 3, non-focal Results Laboratory Results: 12/18/17 04:20 12/18/17 04:20 12/18/17 12/18/17 04:20 04:20 WBC 0.5 L* RBC 3.06 L Hgb 10.0 L Hct 28.2 L MCV 92 MCH 32.6 MCHC 35.3 RDW 18.3 H Plt Count 30 L* Seg Neutrophils % 12.5 L Lymphocytes % 66.5 H Monocytes % 7.1 Eosinophils % 11.9 H Basophils % 2.0 Absolute Neutrophils 0.1 L Absolute Lymphocytes 0.3 L Absolute Monocytes 0.0 L Absolute Eosinophils 0.1 Absolute Basophils 0.0 Sodium 141.9 Potassium 4.1 Chloride 106 Carbon Dioxide 27 Anion Gap 9 BUN 9 Creatinine 0.62 Est GFR ( Amer) > 60 Est GFR (Non-Af Amer) > 60 Glucose 174 H Calcium 8.8 Magnesium 2.0 Impressions: Chest X-Ray 12/16/17 20:08 IMPRESSION: NO ACUTE RADIOGRAPHIC FINDING IN THE CHEST. Assessment & Plan - Plan Summary Plan Summary: (1) Neutropenic fever Is this a current diagnosis for this admission?: Yes Plan: The patient's fever is resolving. This is due to her treatment with chemotherapy as well as her leukemia. Patient also with possible UTI. Oncology is following and I certainly appreciate their input. Will continue broad-spectrum IV antibiotics with imipenem at this time. (2) Acute sinusitis Is this a current diagnosis for this admission?: Yes Plan: Continue imipenem. She is much improved (3) UTI Is this a current diagnosis for this admission?: Yes Plan: Urine culture growing E. coli and group B strep. E. coli is sensitive to imipene. Will continue broad spectrum for now. (4) Acute lymphoblastic leukemia (ALL) Is this a current diagnosis for this admission?: Yes Plan: [facility] She has been seen by Dr Morales here. (5) Pancytopenia Is this a current diagnosis for this admission?: Yes Plan: Due to her leukemia and treatment. Will continue to follow CBC. (6) Diabetes Is this a current diagnosis for this admission?: Yes Plan: We have adjusted her medications here in the hospital. She takes Levemir 30 units in the evening and 10 units 3 times daily before meals. We will also cover her with sliding scale insulin. (7) Hyperlipidemia Is this a current diagnosis for this admission?: Yes Plan: Continue home regimen (8) Hypokalemia Is this a current diagnosis for this admission?: Yes Plan: This was repleted. (9) Hypomagnesemia Is this a current diagnosis for this admission?: Yes Plan: This was repleted. (10) Tobacco dependence Is this a current diagnosis for this admission?: Yes Plan: Smoking cessation counseling.
[2017-12-18] MEDS: ATORVASTATIN CALCIUM 10 MG TABLET PO SCH (21:47)
[2017-12-18] MEDS: ACETAMINOPHEN 325 MG TABLET PO PRN (21:56)
[2017-12-18] MEDS: INSULIN DETEMIR 100 UNIT/ML 3 ML PEN SUBCUT SCH (22:54)
[2017-12-19] MEDS: IMIPENEM/CILASTATIN SODIUM 500 MG in NORMAL SALINE 100 ML IV SCH ×4 (03:05→21:01)
[2017-12-19] MEDS: HEPARIN SOD (PORCINE) 5,000 UNIT/ML 1 ML SYRINGE SUBCUT SCH ×3 (05:01→21:05)
[2017-12-19 07:00] LABS: ANION GAP 12 (5-19); BLOOD UREA NITROGEN 10 mg/dL (7-20); CALCIUM 9.7 mg/dL (8.4-10.2); CARBON DIOXIDE 28 mmol/L (22-30); CHLORIDE 100 mmol/L (98-107); GLUCOSE 358 mg/dL (75-110); POTASSIUM 4.8 mmol/L (3.6-5.0); SODIUM 140.4 mmol/L (137-145)
[2017-12-19 07:12] LABS: ABSOLUTE EOSINOPHILS # (AUTO) 0.1 10^3/uL (0.0-0.6); ABSOLUTE LYMPHOCYTES (AUTO) 0.3 10^3/uL (0.5-4.7); ABSOLUTE NEUT (AUTO) 0.1 10^3/uL (1.7-8.2); EOSINOPHILS % (AUTO) 11.7 % (0-6); HEMATOCRIT 33.2 % (36.0-47.0); HEMOGLOBIN 11.4 g/dL (12.0-15.5); MEAN CORPUSCULAR HEMOGLOBIN 32.1 pg (27.0-33.4); MEAN CORPUSCULAR HGB CONC 34.3 g/dL (32.0-36.0); MEAN CORPUSCULAR VOLUME 93 fl (80-97); MONOCYTES % (AUTO) 9.3 % (3-13); RED BLOOD COUNT 3.56 10^6/uL (3.72-5.28); RED CELL DISTRIBUTION WIDTH 18.7 % (11.5-14.0); TOTAL CELLS COUNTED % (AUTO) 100 %
[2017-12-19 07:38] LABS: PLATELET COUNT 39 10^3/uL (150-450)
[2017-12-19 07:50] LABS: ANISOCYTOSIS 2+; OVALOCYTES SLIGHT
[2017-12-19 07:51] LABS: PLATELET COMMENT DECREASED; POIKILOCYTOSIS SLIGHT; WHITE BLOOD COUNT 0.5 10^3/uL (4.0-10.5)
[2017-12-19] MEDS: INSULIN LISPRO 100 UNIT/ML 3 ML VIAL SUBCUT SCH ×3 (08:23→19:11)
[2017-12-19] MEDS: LEVOTHYROXINE SODIUM 0.025 MG TABLET PO SCH (10:12)
[2017-12-19] MEDS: FLUTICASONE NASAL SPRAY 50 MCG/SPRY 120 SPRAY/16 GM NASL SCH ×2 (10:12→21:04)
[2017-12-19] MEDS: LISINOPRIL 5 MG TABLET PO SCH (10:12)
--- NOTE | 2017-12-19 10:46 | PDOC PROGRESS REPORT ---
Subjective Progress Note for:: 12/19/17 Subjective:: 72-year-old female who is currently undergoing treatment for ALL at [facility] and now admitted to the hospital with neutropenic fever. The patient reported a cold and a cough for a few days prior to admission. She was started on broad-spectrum antibiotics and is being followed by oncology service. Urine culture currently growing E. coli and group B strep. Today, patient continues to report doing okay, no fever or chills, no nausea vomiting. No urinary symptoms at this time, no dysuria or urinary frequency. She also has no polyuria or polydipsia. Reason For Visit: NEUTROPENIC FEVER, ALL HYPOKALEMIA Physical Exam Vital Signs: Temp Pulse Resp BP Pulse Ox 98.2 F 55 L 12 123/47 L 99 12/19/17 07:34 12/19/17 07:34 12/19/17 07:34 12/19/17 07:34 12/19/17 07:34 Intake & Output 12/18/17 12/19/17 12/20/17 06:59 06:59 06:59 Intake Total 4467 1877 Balance 4467 1877 Weight 58.3 kg 60.7 kg Results Laboratory Results: 12/19/17 06:05 12/19/17 06:05 12/19/17 12/19/17 06:05 06:05 WBC 0.5 L* RBC 3.56 L Hgb 11.4 L Hct 33.2 L MCV 93 MCH 32.1 MCHC 34.3 RDW 18.7 H Plt Count 39 L Seg Neutrophils % 10.0 L Lymphocytes % 67.0 H Monocytes % 9.3 Eosinophils % 11.7 H Basophils % 2.0 Absolute Neutrophils 0.1 L Absolute Lymphocytes 0.3 L Absolute Monocytes 0.0 L Absolute Eosinophils 0.1 Absolute Basophils 0.0 Sodium 140.4 Potassium 4.8 Chloride 100 Carbon Dioxide 28 Anion Gap 12 BUN 10 Creatinine 0.60 Est GFR ( Amer) > 60 Est GFR (Non-Af Amer) > 60 Glucose 358 H Calcium 9.7 GEN: NAD, well-developed, well-nourished CV: RRR, NL S1S2 LUNGS: CTA bilaterally ABDOMEN Soft, NT, +BS EXTERMITIES: No e/c/c NEURO: Alert, oriented x 3, non-focal Impressions: Chest X-Ray 12/16/17 20:08 IMPRESSION: NO ACUTE RADIOGRAPHIC FINDING IN THE CHEST. Assessment & Plan - Plan Summary Plan Summary: (1) Neutropenic fever Is this a current diagnosis for this admission?: Yes Plan: Fever has resolved at this time. Neutropenia is likely due to her treatment with chemotherapy for her leukemia. Patient also with possible UTI. Oncology is following and we appreciate their input. Will continue broad-spectrum IV antibiotics with imipenem for now. (2) Acute sinusitis Is this a current diagnosis for this admission?: Yes Plan: Continue imipenem. She is much improved (3) UTI Is this a current diagnosis for this admission?: Yes Plan: Urine culture growing E. coli and group B strep. E. coli is sensitive to imipene. Will continue broad spectrum for now. (4) Acute lymphoblastic leukemia (ALL) Is this a current diagnosis for this admission?: Yes Plan: She is undergoing treatment directed by [facility]. She has been seen by Dr Morales here. (5) Pancytopenia Is this a current diagnosis for this admission?: Yes Plan: Due to her leukemia and treatment. Will continue to follow CBC. (6) Diabetes Is this a current diagnosis for this admission?: Yes Plan: We have adjusted her medications here in the hospital. She takes Levemir 30 units in the evening and 10 units 3 times daily before meals. We will also cover her with sliding scale insulin, which I have now added. (7) Hyperlipidemia Is this a current diagnosis for this admission?: Yes Plan: Continue home regimen (8) Hypokalemia Is this a current diagnosis for this admission?: Yes Plan: This was repleted. Follow-up Chem-7 in a.m. (9) Hypomagnesemia Is this a current diagnosis for this admission?: Yes Plan: This was repleted. Follow-up magnesium level in a.m. (10) Tobacco dependence Is this a current diagnosis for this admission?: Yes Plan: Continue smoking cessation counseling.
--- NOTE | 2017-12-19 11:29 | PDOC PROGRESS REPORT ---
Subjective Progress Note for:: 12/19/17 Subjective:: Patient states that she feels really good. She has been up walking and has been eating well. No fevers, no complaints today. ROS: No nausea, No chills, Good energy. No dyspnea. No dysuria. Reason For Visit: NEUTROPENIC FEVER, ALL HYPOKALEMIA Physical Exam Vital Signs: Temp Pulse Resp BP Pulse Ox 98.2 F 55 L 12 123/47 L 99 12/19/17 07:34 12/19/17 07:34 12/19/17 07:34 12/19/17 07:34 12/19/17 07:34 Intake & Output 12/18/17 12/19/17 12/20/17 06:59 06:59 06:59 Intake Total 4467 1877 Balance 4467 1877 Weight 58.3 kg 60.7 kg General appearance: PRESENT: no acute distress, well-nourished Respiratory exam: PRESENT: clear to auscultation kristi, unlabored Cardiovascular exam: PRESENT: RRR. ABSENT: systolic murmur GI/Abdominal exam: PRESENT: soft. ABSENT: tenderness Extremities exam: ABSENT: pedal edema Neurological exam: PRESENT: alert, awake, oriented to person, oriented to place , oriented to time, oriented to situation Psychiatric exam: PRESENT: appropriate affect Focused psych exam: ABSENT: delusional Skin exam: PRESENT: normal color Results Laboratory Results: 12/19/17 06:05 12/19/17 06:05 12/19/17 12/19/17 06:05 06:05 WBC 0.5 L* RBC 3.56 L Hgb 11.4 L Hct 33.2 L MCV 93 MCH 32.1 MCHC 34.3 RDW 18.7 H Plt Count 39 L Seg Neutrophils % 10.0 L Lymphocytes % 67.0 H Monocytes % 9.3 Eosinophils % 11.7 H Basophils % 2.0 Absolute Neutrophils 0.1 L Absolute Lymphocytes 0.3 L Absolute Monocytes 0.0 L Absolute Eosinophils 0.1 Absolute Basophils 0.0 Sodium 140.4 Potassium 4.8 Chloride 100 Carbon Dioxide 28 Anion Gap 12 BUN 10 Creatinine 0.60 Est GFR ( Amer) > 60 Est GFR (Non-Af Amer) > 60 Glucose 358 H Calcium 9.7 Impressions: Chest X-Ray 12/16/17 20:08 IMPRESSION: NO ACUTE RADIOGRAPHIC FINDING IN THE CHEST. Assessment & Plan - Diagnosis (1) ALL (acute lymphoblastic leukemia) Qualifiers: Leukemia Active/Remission status: in remission Qualified Code(s): C91.01 - Acute lymphoblastic leukemia, in remission Is this a current diagnosis for this admission?: Yes Plan: Chemo currently on hold. Await count recovery. (2) Neutropenic fever Is this a current diagnosis for this admission?: Yes Plan: Fever now resolved. E.coli in urine. Continues on Imipenum. I would consider changing this now to more specific PO meds for the UTI. Her ANC is still 0.1 and this has not yet changed since admission. I am still hopeful that it is due to chemo and will resolve, but if not, consider Discharge and arranging Bone Marrow Biopsy as outpatient. Will wait until Tues to see if ANC improves. - Plan Summary Plan Summary: Please call if needed.
[2017-12-19] MEDS: INSULIN LISPRO 100 UNIT/ML 3 ML VIAL SUBCUT PRN ×2 (13:09→22:21)
[2017-12-19] MEDS: ATORVASTATIN CALCIUM 10 MG TABLET PO SCH (21:01)
[2017-12-19] MEDS: INSULIN DETEMIR 100 UNIT/ML 3 ML PEN SUBCUT SCH (22:21)
[2017-12-20] MEDS: IMIPENEM/CILASTATIN SODIUM 500 MG in NORMAL SALINE 100 ML IV SCH (03:21)
[2017-12-20 05:58] LABS: HEMATOCRIT 29.8 % (36.0-47.0); HEMOGLOBIN 10.3 g/dL (12.0-15.5); MEAN CORPUSCULAR HGB CONC 34.7 g/dL (32.0-36.0); MEAN CORPUSCULAR VOLUME 92 fl (80-97); RED BLOOD COUNT 3.23 10^6/uL (3.72-5.28); RED CELL DISTRIBUTION WIDTH 18.4 % (11.5-14.0)
[2017-12-20 06:18] LABS: PLATELET COUNT 38 10^3/uL (150-450); WHITE BLOOD COUNT 0.6 10^3/uL (4.0-10.5)
[2017-12-20 06:41] LABS: ANION GAP 11 (5-19); BLOOD UREA NITROGEN 14 mg/dL (7-20); CALCIUM 9.2 mg/dL (8.4-10.2); CARBON DIOXIDE 29 mmol/L (22-30); CHLORIDE 100 mmol/L (98-107); GLUCOSE 364 mg/dL (75-110); POTASSIUM 4.6 mmol/L (3.6-5.0)
[2017-12-20] MEDS: HEPARIN SOD (PORCINE) 5,000 UNIT/ML 1 ML SYRINGE SUBCUT SCH ×3 (06:59→21:56)
[2017-12-20 07:06] LABS: ABSOLUTE LYMPHOCYTES# (MANUAL) 0.4 10^3/uL (0.5-4.7); ABSOLUTE NEUTROPHILS# (MANUAL) 0.1 10^3/uL (1.7-8.2); BASOPHILS % (MANUAL) 0 % (0-2); EOSINOPHILS % (MANUAL) 8 % (0-6); LYMPHOCYTES % (MANUAL) 72 % (13-45); MONOCYTES % (MANUAL) 8 % (3-13); SEGMENTED NEUTROPHILS % (MAN) 12 % (42-78); TOTAL CELLS COUNTED 50
[2017-12-20 07:14] LABS: ANISOCYTOSIS 2+; OVALOCYTES SLIGHT; PLATELET COMMENT DECREASED; PLATELET GIANT PRESENT; PLATELET LARGE PRESENT; POIKILOCYTOSIS SLIGHT; SCHISTOCYTES SLIGHT; TOXIC GRANULATION SLIGHT
[2017-12-20] MEDS: INSULIN LISPRO 100 UNIT/ML 3 ML VIAL SUBCUT SCH ×3 (08:31→17:44)
[2017-12-20] MEDS: INSULIN LISPRO 100 UNIT/ML 3 ML VIAL SUBCUT PRN ×4 (08:31→22:06)
[2017-12-20] MEDS: LEVOTHYROXINE SODIUM 0.025 MG TABLET PO SCH (10:00)
[2017-12-20] MEDS: CEFUROXIME 500 MG TABLET PO SCH ×2 (10:01→22:06)
[2017-12-20] MEDS: MAGNESIUM OXIDE 400 MG TABLET PO SCH ×3 (10:02→17:44)
[2017-12-20] MEDS: FLUTICASONE NASAL SPRAY 50 MCG/SPRY 120 SPRAY/16 GM NASL SCH ×2 (10:02→22:09)
[2017-12-20] MEDS: LISINOPRIL 5 MG TABLET PO SCH (10:02)
--- NOTE | 2017-12-20 10:14 | PDOC PROGRESS REPORT ---
Subjective Progress Note for:: 12/20/17 Subjective:: 72-year-old female who is currently undergoing treatment for ALL at [facility] and now admitted to the hospital with neutropenic fever. The patient reported a cold and a cough for a few days prior to admission. She was started on broad-spectrum antibiotics and is being followed by oncology service. Urine culture currently growing E. coli and group B strep. Today, patient continues to report doing better, no fever or chills, no nausea vomiting. No urinary symptoms at this time, no dysuria or urinary frequency. She also has no polyuria or polydipsia. Reason For Visit: NEUTROPENIC FEVER, ALL HYPOKALEMIA Physical Exam Vital Signs: Temp Pulse Resp BP Pulse Ox 97.7 F 55 L 12 120/55 L 98 12/20/17 07:51 12/20/17 07:51 12/20/17 07:51 12/20/17 07:51 12/20/17 07:51 Intake & Output 12/19/17 12/20/17 12/21/17 06:59 06:59 06:59 Intake Total 1876 2113 Balance 1876 2113 Weight 60.7 kg 58.7 kg GEN: NAD, well-developed, well-nourished CV: RRR, NL S1S2 LUNGS: CTA bilaterally ABDOMEN Soft, NT, +BS EXTERMITIES: No e/c/c NEURO: Alert, oriented x 3, non-focal Results Laboratory Results: 12/20/17 04:50 12/20/17 04:50 12/20/17 12/20/17 04:50 04:50 WBC 0.6 L* RBC 3.23 L Hgb 10.3 L Hct 29.8 L MCV 92 MCH 32.0 MCHC 34.7 RDW 18.4 H Plt Count 38 L Seg Neutrophils % Not Reportable Lymphocytes % Not Reportable Monocytes % Not Reportable Eosinophils % Not Reportable Basophils % Not Reportable Absolute Neutrophils Not Reportable Absolute Lymphocytes Not Reportable Absolute Monocytes Not Reportable Absolute Eosinophils Not Reportable Absolute Basophils Not Reportable Sodium 140.0 Potassium 4.6 Chloride 100 Carbon Dioxide 29 Anion Gap 11 BUN 14 Creatinine 0.69 Est GFR ( Amer) > 60 Est GFR (Non-Af Amer) > 60 Glucose 364 H Calcium 9.2 Magnesium 1.5 L Impressions: Chest X-Ray 12/16/17 20:08 IMPRESSION: NO ACUTE RADIOGRAPHIC FINDING IN THE CHEST. Assessment & Plan - Plan Summary Plan Summary: (1) Neutropenic fever Is this a current diagnosis for this admission?: Yes Plan: Fever has resolved at this time. Neutropenia is likely due to her treatment with chemotherapy for her leukemia. Patient also with possible UTI. Oncology is following and we appreciate their input. Will de-escalate broad-spectrum IV antibiotics with imipenem to cefuroxime 500 mg p.o. twice daily. (2) Acute sinusitis Is this a current diagnosis for this admission?: Yes Plan: Continue cefuroxime orally as a #1 above. She is much improved (3) UTI Is this a current diagnosis for this admission?: Yes Plan: Urine culture growing E. coli and group B strep. E. coli is sensitive to imipenem and cefuroxime and I have de-escalating antibiotics (4) Acute lymphoblastic leukemia (ALL) Is this a current diagnosis for this admission?: Yes Plan: She is undergoing treatment directed by [facility]. She has been seen by Dr Morales here. (5) Pancytopenia Is this a current diagnosis for this admission?: Yes Plan: Due to her leukemia and treatment. Will continue to follow CBC. (6) Diabetes Is this a current diagnosis for this admission?: Yes Plan: We have adjusted her medications here in the hospital. She takes Levemir 30 units in the evening and 10 units 3 times daily before meals. We will also cover her with sliding scale insulin, which I have now added. (7) Hyperlipidemia Is this a current diagnosis for this admission?: Yes Plan: Continue home regimen (8) Hypokalemia Is this a current diagnosis for this admission?: Yes Plan: This was repleted and normal today. (9) Hypomagnesemia Is this a current diagnosis for this admission?: Yes Plan: Start magnesium oxide 400 mg 3 times daily for 2 days. (10) Tobacco dependence Is this a current diagnosis for this admission?: Yes Plan: Continued smoking cessation counseling.
[2017-12-20] MEDS: ACETAMINOPHEN 325 MG TABLET PO PRN (14:09)
[2017-12-20] MEDS: INSULIN DETEMIR 100 UNIT/ML 3 ML PEN SUBCUT SCH (22:06)
[2017-12-20] MEDS: ATORVASTATIN CALCIUM 10 MG TABLET PO SCH (22:07)
[2017-12-21] MEDS: LEVOTHYROXINE SODIUM 0.025 MG TABLET PO SCH (05:45)
[2017-12-21] MEDS: HEPARIN SOD (PORCINE) 5,000 UNIT/ML 1 ML SYRINGE SUBCUT SCH ×3 (06:18→21:24)
[2017-12-21 06:36] LABS: ABSOLUTE LYMPHOCYTES (AUTO) 0.5 10^3/uL (0.5-4.7); ABSOLUTE MONOCYTES (AUTO) 0.1 10^3/uL (0.1-1.4); BASOPHILS % (AUTO) 0.9 % (0-2); EOSINOPHILS % (AUTO) 6.2 % (0-6); HEMATOCRIT 29.5 % (36.0-47.0); HEMOGLOBIN 10.4 g/dL (12.0-15.5); LYMPHOCYTES % (AUTO) 68.2 % (13-45); MEAN CORPUSCULAR HEMOGLOBIN 32.5 pg (27.0-33.4); MEAN CORPUSCULAR HGB CONC 35.2 g/dL (32.0-36.0); MEAN CORPUSCULAR VOLUME 92 fl (80-97); MONOCYTES % (AUTO) 19.6 % (3-13); RED BLOOD COUNT 3.19 10^6/uL (3.72-5.28); RED CELL DISTRIBUTION WIDTH 18.5 % (11.5-14.0); SEGMENTED NEUTROPHILS % (AUTO) 5.1 % (42-78); TOTAL CELLS COUNTED % (AUTO) 100 %
[2017-12-21 06:51] LABS: PLATELET COUNT 43 10^3/uL (150-450)
[2017-12-21 06:53] LABS: WHITE BLOOD COUNT 0.7 10^3/uL (4.0-10.5)
[2017-12-21 06:59] LABS: ANISOCYTOSIS 2+; PLATELET COMMENT DECREASED
[2017-12-21] MEDS: INSULIN LISPRO 100 UNIT/ML 3 ML VIAL SUBCUT SCH ×3 (08:11→17:12)
[2017-12-21] MEDS: INSULIN LISPRO 100 UNIT/ML 3 ML VIAL SUBCUT PRN ×4 (08:11→21:14)
[2017-12-21] MEDS: FLUTICASONE NASAL SPRAY 50 MCG/SPRY 120 SPRAY/16 GM NASL SCH ×2 (09:31→21:15)
[2017-12-21] MEDS: LISINOPRIL 5 MG TABLET PO SCH (09:32)
[2017-12-21] MEDS: CEFUROXIME 500 MG TABLET PO SCH ×2 (09:32→21:14)
[2017-12-21] MEDS: MAGNESIUM OXIDE 400 MG TABLET PO SCH ×3 (09:32→17:12)
--- NOTE | 2017-12-21 09:35 | PDOC PROGRESS REPORT ---
Subjective Progress Note for:: 12/21/17 Subjective:: Patient feeling well. No complaints. Asks about her neutropenic precautions concerning her diet. Reason For Visit: NEUTROPENIC FEVER, ALL HYPOKALEMIA Physical Exam Vital Signs: Temp Pulse Resp BP Pulse Ox 98.1 F 62 12 124/44 L 100 12/21/17 07:22 12/21/17 07:22 12/21/17 07:22 12/21/17 07:22 12/21/17 07:22 Intake & Output 12/20/17 12/21/17 12/22/17 06:59 06:59 06:59 Intake Total 2114 1641 Balance 4 1641 Weight 58.7 kg 58.8 kg General appearance: PRESENT: no acute distress Respiratory exam: PRESENT: unlabored Extremities exam: ABSENT: pedal edema Neurological exam: PRESENT: alert, awake, oriented to person, oriented to place , oriented to time, oriented to situation Psychiatric exam: PRESENT: appropriate affect Skin exam: PRESENT: normal color Results Laboratory Results: 12/21/17 05:45 12/20/17 04:50 12/21/17 05:45 WBC 0.7 L* RBC 3.19 L Hgb 10.4 L Hct 29.5 L MCV 92 MCH 32.5 MCHC 35.2 RDW 18.5 H Plt Count 43 L Seg Neutrophils % 5.1 L Lymphocytes % 68.2 H Monocytes % 19.6 H Eosinophils % 6.2 H Basophils % 0.9 Absolute Neutrophils 0.0 L Absolute Lymphocytes 0.5 Absolute Monocytes 0.1 Absolute Eosinophils 0.0 Absolute Basophils 0.0 Impressions: Chest X-Ray 12/16/17 20:08 IMPRESSION: NO ACUTE RADIOGRAPHIC FINDING IN THE CHEST. Assessment & Plan - Diagnosis (1) ALL (acute lymphoblastic leukemia) Qualifiers: Leukemia Active/Remission status: in remission Qualified Code(s): C91.01 - Acute lymphoblastic leukemia, in remission Is this a current diagnosis for this admission?: Yes Plan: Unsure if the continued pancytopenia is due to chemotherapy or leukemia. Plan for bone marrow biopsy in 1 week. (2) Neutropenic fever Is this a current diagnosis for this admission?: Yes Plan: Fever resolved. I am OK with discharge home today on current antibiotics for another 7 days. I will see her in the office next week to repeat bone marrow. - Plan Summary Plan Summary: Please call me with concerns. Patient was discussed with primary attending.
[2017-12-21] MEDS ORDERED: INSULIN DETEMIR 100 UNIT/ML 3 ML PEN SUBCUT ONE (10:30)
--- NOTE | 2017-12-21 17:18 | PDOC PROGRESS REPORT ---
Subjective Progress Note for:: 12/21/17 Subjective:: 72-year-old female who is currently undergoing treatment for ALL at [facility] and now admitted to the hospital with neutropenic fever. The patient reported a cold and a cough for a few days prior to admission. She was started on broad-spectrum antibiotics and is being followed by oncology service. Urine culture currently growing E. coli and group B strep. Currently, patient having problems with elevated blood glucose. It is running in the 300s. Continues to report doing better otherwise, no fever or chills, no nausea vomiting. No urinary symptoms at this time, no dysuria or urinary frequency. She also has no polyuria or polydipsia. Reason For Visit: NEUTROPENIC FEVER, ALL HYPOKALEMIA Physical Exam Vital Signs: Temp Pulse Resp BP Pulse Ox 98.4 F 80 16 116/62 100 12/21/17 15:21 12/21/17 15:21 12/21/17 15:21 12/21/17 15:21 12/21/17 15:21 Intake & Output 12/20/17 12/21/17 12/22/17 06:59 06:59 06:59 Intake Total 2114 1641 237 Balance 2114 1641 237 Weight 58.7 kg 58.8 kg GEN: NAD, well-developed, well-nourished CV: RRR, NL S1S2 LUNGS: CTA bilaterally ABDOMEN Soft, NT, +BS EXTERMITIES: No e/c/c NEURO: Alert, oriented x 3, non-focal Results Laboratory Results: 12/21/17 05:45 12/20/17 04:50 12/21/17 12/21/17 05:45 13:30 WBC 0.7 L* RBC 3.19 L Hgb 10.4 L Hct 29.5 L MCV 92 MCH 32.5 MCHC 35.2 RDW 18.5 H Plt Count 43 L Seg Neutrophils % 5.1 L Lymphocytes % 68.2 H Monocytes % 19.6 H Eosinophils % 6.2 H Basophils % 0.9 Absolute Neutrophils 0.0 L Absolute Lymphocytes 0.5 Absolute Monocytes 0.1 Absolute Eosinophils 0.0 Absolute Basophils 0.0 Magnesium 1.7 Impressions: Chest X-Ray 12/16/17 20:08 IMPRESSION: NO ACUTE RADIOGRAPHIC FINDING IN THE CHEST. Assessment & Plan - Plan Summary Plan Summary: (1) Neutropenic fever Is this a current diagnosis for this admission?: Yes Plan: Fever has resolved at this time. Neutropenia is likely due to her treatment with chemotherapy for her leukemia. Patient also with UTI. Oncology is following and we appreciate their input. Patient was treated with broad- spectrum IV antibiotics with imipenem for 4 days and that has been transitioned to cefuroxime 500 mg p.o. twice daily -- total abx day #6. -Slow improvement in white blood cells. Oncology follow-up today noted. Dr. Rhoades stated patient can be discharged from their point of view to follow-up in clinic early next week. Patient may need bone marrow biopsy if no significant improvement. -Unfortunately, her blood sugars are still running in the 300s, so we will try and adjust insulin some more. -Patient also had 8 runs of VTs today. We will continue to correct electrolyte. Also check TSH. (2) Acute sinusitis Is this a current diagnosis for this admission?: Yes Plan: Continue cefuroxime orally as a #1 above. She is much improved (3) UTI Is this a current diagnosis for this admission?: Yes Plan: Urine culture growing E. coli and group B strep. E. coli is sensitive to imipenem and cefuroxime and I have de-escalating antibiotics (4) Acute lymphoblastic leukemia (ALL) Is this a current diagnosis for this admission?: Yes Plan: She is undergoing treatment directed by [facility]. She has been seen by Dr Morales here. (5) Pancytopenia Is this a current diagnosis for this admission?: Yes Plan: Due to her leukemia and treatment. Will continue to follow CBC. (6) Diabetes Is this a current diagnosis for this admission?: Yes Plan: We have adjusted her medications here in the hospital. She now states that she takes Levemir 40 units in the evening and 10 units 3 times daily before meals. She is on 35 units nightly here. Will give additional 10 units of Levemir this morning and her 35 units this evening for a total of 45 minutes today. We will also continue to cover her with sliding scale insulin. (7) Hyperlipidemia Is this a current diagnosis for this admission?: Yes Plan: Continue home regimen (9) Hypomagnesemia Is this a current diagnosis for this admission?: Yes Plan: Patient had 8 runs of today. Magnesium better today, but borderline normal at 1.7 Will continue magnesium oxide 400 mg 3 times daily for for now. (10) Non-sustained VT Is this a current diagnosis for this admission?: Yes Plan: Patient had 8 runs of today. She was hypokalemic but that has since been corrected. Magnesium also better, but only borderline normal. -We will continue magnesium repletion for now. Follow-up Chem-7, magnesium level in a.m. Will also check TSH. Consider cardiology consult if recurrent VTs. (11) Tobacco dependence Is this a current diagnosis for this admission?: Yes Plan: Continued smoking cessation counseling.
[2017-12-21] MEDS: ATORVASTATIN CALCIUM 10 MG TABLET PO SCH (21:13)
[2017-12-21] MEDS: INSULIN DETEMIR 100 UNIT/ML 3 ML PEN SUBCUT SCH (21:14)
[2017-12-21] MEDS: ACETAMINOPHEN 325 MG TABLET PO PRN (21:23)
[2017-12-22 05:39] LABS: HEMATOCRIT 28.6 % (36.0-47.0); HEMOGLOBIN 10.1 g/dL (12.0-15.5); MEAN CORPUSCULAR HEMOGLOBIN 32.9 pg (27.0-33.4); MEAN CORPUSCULAR HGB CONC 35.4 g/dL (32.0-36.0); MEAN CORPUSCULAR VOLUME 93 fl (80-97); RED BLOOD COUNT 3.08 10^6/uL (3.72-5.28); RED CELL DISTRIBUTION WIDTH 19.6 % (11.5-14.0)
[2017-12-22 05:44] LABS: PLATELET COUNT 49 10^3/uL (150-450)
[2017-12-22 05:47] LABS: ANION GAP 8 (5-19); BLOOD UREA NITROGEN 24 mg/dL (7-20); CALCIUM 9.7 mg/dL (8.4-10.2); CARBON DIOXIDE 33 mmol/L (22-30); CHLORIDE 99 mmol/L (98-107); GLUCOSE 262 mg/dL (75-110); POTASSIUM 4.4 mmol/L (3.6-5.0); SODIUM 139.6 mmol/L (137-145)
[2017-12-22] MEDS: LEVOTHYROXINE SODIUM 0.025 MG TABLET PO SCH (06:00)
[2017-12-22] MEDS: HEPARIN SOD (PORCINE) 5,000 UNIT/ML 1 ML SYRINGE SUBCUT SCH (06:01)
[2017-12-22 06:40] LABS: ABSOLUTE LYMPHOCYTES# (MANUAL) 0.7 10^3/uL (0.5-4.7); ABSOLUTE MONOCYTES # (MANUAL) 0.2 10^3/uL (0.1-1.4); ABSOLUTE NEUTROPHILS# (MANUAL) 0.1 10^3/uL (1.7-8.2); BASOPHILS % (MANUAL) 0 % (0-2); EOSINOPHILS % (MANUAL) 3 % (0-6); MONOCYTES % (MANUAL) 18 % (3-13); NUCLEATED RED BLOOD CELLS 1 /100 WBC (0); SEGMENTED NEUTROPHILS % (MAN) 6 % (42-78); TOTAL CELLS COUNTED 100
[2017-12-22 06:41] LABS: PLATELET COMMENT DECREASED
[2017-12-22 06:42] LABS: PLATELET LARGE PRESENT
[2017-12-22 06:43] LABS: ANISOCYTOSIS 2+; OVALOCYTES SLIGHT; POIKILOCYTOSIS SLIGHT
[2017-12-22 06:46] LABS: LYMPHOCYTES % (MANUAL) 72 % (13-45)
[2017-12-22] MEDS: INSULIN LISPRO 100 UNIT/ML 3 ML VIAL SUBCUT PRN ×2 (07:52→11:53)
[2017-12-22] MEDS: INSULIN LISPRO 100 UNIT/ML 3 ML VIAL SUBCUT SCH ×2 (07:52→11:53)
[2017-12-22] MEDS: CEFUROXIME 500 MG TABLET PO SCH (09:33)
[2017-12-22] MEDS: MAGNESIUM OXIDE 400 MG TABLET PO SCH (09:33)
[2017-12-22] MEDS: LISINOPRIL 5 MG TABLET PO SCH (09:33)
[2017-12-22] MEDS: FLUTICASONE NASAL SPRAY 50 MCG/SPRY 120 SPRAY/16 GM NASL SCH (09:33)
--- NOTE | 2017-12-22 09:55 | PDOC DISCHARGE SUMMARY ---
General - Admit/Disc Date/PCP Admission Date/Primary Care Provider: 12/17/17 00:50 GEORGE SOUSA MD Discharge Date: 12/22/17 - Discharge Diagnosis (1) Acute lymphoblastic leukemia (ALL) Is this a current diagnosis for this admission?: Yes (2) Acute sinusitis Is this a current diagnosis for this admission?: Yes (3) Diabetes Is this a current diagnosis for this admission?: Yes (5) Hypomagnesemia Is this a current diagnosis for this admission?: Yes (6) Neutropenic fever Is this a current diagnosis for this admission?: Yes (7) Pancytopenia Is this a current diagnosis for this admission?: Yes (8) Tobacco dependence Is this a current diagnosis for this admission?: Yes - Additional Information Resuscitation Status: Full Code Discharge Diet: Diabetic, Other (Comments) - neutropenia diet Discharge Activity: Activity As Tolerated Prescriptions: Insulin Detemir [Levemir Insulin 100 units/mL] 40 unit SUBCUT QHS #3 insuln.pen Ciprofloxacin HCl [Cipro 500 mg Tablet] 500 mg PO BID #20 tablet Levothyroxine Sodium [Synthroid 0.025 mg Tablet] 0.05 mg PO Q6AM #30 tablet Home Medications: Atorvastatin Calcium [Lipitor 10 mg Tablet] 10 mg PO QHS 12/17/17 Insulin Aspart [Novolog Flexpen] 10 units SQ MEALS 12/17/17 Insulin Detemir [Levemir Flextouch] 35 units SQ QHS 12/17/17 Levothyroxine Sodium [Synthroid 0.025 mg Tablet] 0.025 mg PO Q6AM 12/17/17 Lisinopril [Prinivil 2.5 mg Tablet] 2.5 mg PO DAILY 12/17/17 Mercaptopurine [Purinethol 50 mg Tablet] 100 mg PO QPM 12/17/17 Methotrexate Sodium [Methotrexate] 6 tab PO WE@1000 12/17/17 Prednisone 4 tab PO Q28D 12/17/17 Ciprofloxacin HCl [Cipro 500 mg Tablet] 500 mg PO BID #20 tablet 12/22/17 Insulin Detemir [Levemir Insulin 100 units/mL] 40 unit SUBCUT QHS #3 insuln.pen 12/22/17 Levothyroxine Sodium [Synthroid 0.025 mg Tablet] 0.05 mg PO Q6AM #30 tablet History of Present Illness Patient complains of: Generalized weakness and fever History of Present Illness: JIM ACEVEDO is a 72 year old female with a past medical history of ALL, anemia, tobacco dependence and diabetes. Patient was seen at [facility] yesterday for transfusion of 2 units of packed red blood cells for hemoglobin of 8.4, currently 10.1. She presents with 48 hours of generalized weakness, rhinorrhea, postnasal drip and nonproductive cough. She she has now developed a fever of 100.0 prompting evaluation emergency room where she is found to have neutropenia, hypokalemia and sepsis with an elevated lactic acid. She started on empiric antibiotics and IV fluid challenge referred to the hospitalist for admission. Hospital Course Hospital Course: (1) Neutropenic fever Secondary to urinary tract infection and sinusitis Patient was treated with imipenem initially and switched to cefuroxime; There is a strong allergy to cephalosporins and we felt uneasy discharging her with cefuroxime We will discharge her on Cipro 500 mg twice daily for 7 days (2) UTI and sinusitis Urine culture growing E. coli and group B strep. E. coli is sensitive to Cipro Continue Cipro as stated above 12/16/17 22:20 Urine Culture - Final Clean Catch Midstream Escherichia Coli Group B Beta Streptococcus (3) Acute lymphoblastic leukemia (ALL) She is undergoing treatment directed by [facility]. Patient to follow-up next week with Dr Morales (4) Pancytopenia 12/22/17 04:55 WBC 1.0 L* Hgb 10.1 L Hct 28.6 L Total Counted 100 Seg Neuts % (Manual) 6 L Lymphocytes % (Manual) 72 H Monocytes % (Manual) 18 H Patient was discharged on neutropenia precautions (5) Diabetes Uncontrolled blood sugars We will increase Levemir to 35 units at night Patient to continue short acting insulin prior to meals Levemir may need to be further increased if her blood sugars are still high after discharge (6) electrolyte imbalance Magnesium and potassium were replaced (7) hypothyroidism TSH was 7.5 Increase Synthroid to 0.05 mg daily Advise repeat TSH in about a month's time Physical Exam Vital Signs: Temp Pulse Resp BP Pulse Ox 97.7 F 63 16 120/60 99 12/22/17 07:35 12/22/17 07:35 12/22/17 07:35 12/22/17 07:35 12/22/17 07:35 Intake & Output 12/21/17 12/22/17 12/23/17 00:59 00:59 00:59 Intake Total 1641 1387 Balance 1641 1387 Weight 58.7 kg 58.8 kg 59 kg General appearance: PRESENT: no acute distress, well-developed, well-nourished Head exam: PRESENT: atraumatic, normocephalic Eye exam: PRESENT: conjunctiva pink, EOMI, PERRLA. ABSENT: scleral icterus Ear exam: PRESENT: normal external ear exam Mouth exam: PRESENT: moist, tongue midline Neck exam: ABSENT: carotid bruit, JVD, lymphadenopathy, thyromegaly Respiratory exam: PRESENT: clear to auscultation kristi. ABSENT: rales, rhonchi, wheezes Cardiovascular exam: PRESENT: RRR. ABSENT: diastolic murmur, rubs, systolic murmur Pulses: PRESENT: normal dorsalis pedis pul Vascular exam: PRESENT: normal capillary refill GI/Abdominal exam: PRESENT: normal bowel sounds, soft. ABSENT: distended, guarding, mass, organolmegaly, rebound, tenderness Rectal exam: PRESENT: deferred Extremities exam: PRESENT: full ROM. ABSENT: calf tenderness, clubbing, pedal edema Neurological exam: PRESENT: alert, awake, oriented to person, oriented to place , oriented to time, oriented to situation, CN II-XII grossly intact. ABSENT: motor sensory deficit Psychiatric exam: PRESENT: appropriate affect, normal mood. ABSENT: homicidal ideation, suicidal ideation Skin exam: PRESENT: dry, intact, warm. ABSENT: cyanosis, rash Results Laboratory Results: 12/22/17 04:55 12/22/17 04:55 12/21/17 12/22/17 12/22/17 13:30 04:55 04:55 WBC 1.0 L* RBC 3.08 L Hgb 10.1 L Hct 28.6 L MCV 93 MCH 32.9 MCHC 35.4 RDW 19.6 H Plt Count 49 L Seg Neutrophils % Not Reportable Lymphocytes % Not Reportable Monocytes % Not Reportable Eosinophils % Not Reportable Basophils % Not Reportable Absolute Neutrophils Not Reportable Absolute Lymphocytes Not Reportable Absolute Monocytes Not Reportable Absolute Eosinophils Not Reportable Absolute Basophils Not Reportable Sodium 139.6 Potassium 4.4 Chloride 99 Carbon Dioxide 33 H Anion Gap 8 BUN 24 H Creatinine 0.69 Est GFR ( Amer) > 60 Est GFR (Non-Af Amer) > 60 Glucose 262 H Calcium 9.7 Magnesium 1.7 1.8 TSH 12/22/17 04:55 WBC RBC Hgb Hct MCV MCH MCHC RDW Plt Count Seg Neutrophils % Lymphocytes % Monocytes % Eosinophils % Basophils % Absolute Neutrophils Absolute Lymphocytes Absolute Monocytes Absolute Eosinophils Absolute Basophils Sodium Potassium Chloride Carbon Dioxide Anion Gap BUN Creatinine Est GFR ( Amer) Est GFR (Non-Af Amer) Glucose Calcium Magnesium TSH 7.80 H Impressions: Chest X-Ray 12/16/17 20:08 IMPRESSION: NO ACUTE RADIOGRAPHIC FINDING IN THE CHEST. Qualifiers - * PATIENT BEING DISCHARGED WITH ANY OF THE FOLLOWING DIAGNOSIS: No Plan Discharge Plan: Follow-up with Dr. Morales next week Follow-up blood sugars Adjust insulin Repeat TSH in 1 month Time Spent: Greater than 30 Minutes
[2017-12-22 11:29] LABS: FREE T3 3.28 pg/mL (2.77-5.27); FREE T4 (FREE THYROXINE) 0.89 ng/dL (0.78-2.19)
[2017-12-22 11:33] VITALS: BP 132/52
[2017-12-22 13:57] LABS: PATH REVIEW PATHOLOGIST REVIEWED
== END 2017-12-22 14:32 | disposition home or self-care (01) | DRG 809 ==
LOC: ER 19:44 → EH 12-17 00:50 → 3N 12-17 03:23
PROVIDERS: ADMIT Internal Medicine; ATTEND Internal Medicine
PROC: 3E0234Z Introduction of Serum, Toxoid and Vaccine into Muscle, Percutaneous Approach (ICD-10-PCS; principal; 2017-12-17)
DX: D70.9 Neutropenia, unspecified (principal); C91.01 Acute lymphoblastic leukemia, in remission; N39.0 Urinary tract infection, site not specified; I47.2 Ventricular tachycardia; D61.818 Other pancytopenia; J01.90 Acute sinusitis, unspecified; E83.42 Hypomagnesemia; R50.81 Fever presenting with conditions classified elsewhere; E87.6 Hypokalemia; B96.20 Unspecified Escherichia coli [E. coli] as the cause of diseases classified elsewhere; B95.1 Streptococcus, group B, as the cause of diseases classified elsewhere; E11.65 Type 2 diabetes mellitus with hyperglycemia; E03.9 Hypothyroidism, unspecified; E78.00 Pure hypercholesterolemia, unspecified; I11.0 Hypertensive heart disease with heart failure; D64.9 Anemia, unspecified; F17.210 Nicotine dependence, cigarettes, uncomplicated; Z79.4 Long term (current) use of insulin; Z79.899 Other long term (current) drug therapy; Z90.49 Acquired absence of other specified parts of digestive tract; Z90.710 Acquired absence of both cervix and uterus; Z82.61 Family history of arthritis; Z83.6 Family history of other diseases of the respiratory system; Z82.49 Family history of ischemic heart disease and other diseases of the circulatory system
CPT/HCPCS: 36415; 36430; 71045; 80048; 80053; 81001; 82803; 82962; 83036; 83605; 83735; 84439; 84443; 84481; 85025; 85610; 85730; 86850; 86900; 86901; 86920; 87040; 87086; 87088; 87186; 93005; 93010; 96374; 99285; J0743; J1642; J1815; J1940; J3475; J3480; J3490; J7030; P9016

== ENCOUNTER 2018-01-24 17:30 | Emergency (ER) | payer MEDICARE, MEDICAID ==
--- NOTE | 2018-01-24 17:47 | ER Document Report ---
ED Medical Screen (RME) - General Chief Complaint: Fever Stated Complaint: FEVER, WEAKNESS Time Seen by Provider: 01/24/18 17:43 TRAVEL OUTSIDE OF THE [place] IN LAST 30 DAYS: No - Related Data Allergies/Adverse Reactions: cefepime Allergy (Verified 01/24/18 17:46) Coma sulfamethoxazole [From Septra] Allergy (Verified 01/24/18 17:46) Coma trimethoprim [From Septra] Allergy (Verified 01/24/18 17:46) Coma Past Medical History - Social History Chew tobacco use (# tins/day): No Frequency of alcohol use: None Drug Abuse: None - Past Medical History Cardiac Medical History: Reports: Hx Hypercholesterolemia Denies: Hx Coronary Artery Disease, Hx Heart Attack, Hx Hypertension Pulmonary Medical History: Denies: Hx Asthma, Hx Bronchitis, Hx COPD, Hx Pneumonia Neurological Medical History: Denies: Hx Cerebrovascular Accident, Hx Seizures Endocrine Medical History: Reports: Hx Diabetes Mellitus Type 2, Hx Hypothyroidism Renal/ Medical History: Denies: Hx Peritoneal Dialysis Musculoskeltal Medical History: Denies Hx Arthritis Psychiatric Medical History: Denies: Hx Depression Past Surgical History: Reports: Hx Cholecystectomy, Hx Hysterectomy, Hx Pancreatic Surgery - Duct stent, Hx Tubal Ligation, Other - Pancreatic stent, port placement. - Immunizations Hx Diphtheria, Pertussis, Tetanus Vaccination: No History of Influenza Vaccine for 04/2017 - 09/2017 Season: Yes Influenza Administration Date for 04/2017 - 09/2017 Season: 04/26/17 Physical Exam - Vital signs Vitals: Temp Pulse Resp BP Pulse Ox 101.3 F H 98 20 132/61 H 96 01/24/18 17:39 01/24/18 17:39 01/24/18 17:39 01/24/18 17:39 01/24/18 17:39 Course - Vital Signs Vital signs: Temp Pulse Resp BP Pulse Ox 101.3 F H 98 20 132/61 H 96 01/24/18 17:39 01/24/18 17:39 01/24/18 17:39 01/24/18 17:39 01/24/18 17:39 Doctor's Discharge - Discharge Referrals: GEORGE SOUSA MD [Primary Care Provider] - Follow up as needed
[2018-01-24] MEDS ORDERED: NORMAL SALINE 1000 ML 1,000 ML IV ONE (17:51)
[2018-01-24] MEDS ORDERED: IMIPENEM/CILASTATIN SODIUM INJ 500 MG VIAL IV ONE (17:52)
--- NOTE | 2018-01-24 17:53 | ER Document Report ---
ED Medical Screen (RME) - General Chief Complaint: Fever Stated Complaint: FEVER, WEAKNESS Time Seen by Provider: 01/24/18 17:43 Mode of Arrival: Ambulatory Information source: Patient, Relative, [facility] Records Notes: 72-year-old female who is currently receiving chemotherapy presents with fever. Patient has no specific complaints denies a cough. Patient notes similar episode of neutropenic fever over , I have greeted and performed a rapid initial assessment of this patient. A comprehensive ED assessment and evaluation of the patient, analysis of test results and completion of the medical decision making process will be conducted by additional ED providers. PHYSICAL EXAMINATION: GENERAL: Febrile well-appearing, well-nourished and in no acute distress. HEAD: Atraumatic, normocephalic. EYES: Pupils equal round extraocular movements intact, conjunctiva are normal. ENT: Nares patent NECK: Normal range of motion LUNGS: No respiratory distress Musculoskeletal: Normal range of motion NEUROLOGICAL: Normal speech, normal gait. PSYCH: Normal mood, normal affect. SKIN: Warm, Dry, normal turgor, no rashes or lesions noted. TRAVEL OUTSIDE OF THE [place] IN LAST 30 DAYS: No - Related Data Allergies/Adverse Reactions: cefepime Allergy (Verified 01/24/18 17:46) Coma sulfamethoxazole [From Septra] Allergy (Verified 01/24/18 17:46) Coma trimethoprim [From Septra] Allergy (Verified 01/24/18 17:46) Coma Past Medical History - Social History Chew tobacco use (# tins/day): No Frequency of alcohol use: None Drug Abuse: None - Past Medical History Cardiac Medical History: Reports: Hx Hypercholesterolemia Denies: Hx Coronary Artery Disease, Hx Heart Attack, Hx Hypertension Pulmonary Medical History: Denies: Hx Asthma, Hx Bronchitis, Hx COPD, Hx Pneumonia Neurological Medical History: Denies: Hx Cerebrovascular Accident, Hx Seizures Endocrine Medical History: Reports: Hx Diabetes Mellitus Type 2, Hx Hypothyroidism Renal/ Medical History: Denies: Hx Peritoneal Dialysis Musculoskeltal Medical History: Denies Hx Arthritis Psychiatric Medical History: Denies: Hx Depression Past Surgical History: Reports: Hx Cholecystectomy, Hx Hysterectomy, Hx Pancreatic Surgery - Duct stent, Hx Tubal Ligation, Other - Pancreatic stent, port placement. - Immunizations Hx Diphtheria, Pertussis, Tetanus Vaccination: No History of Influenza Vaccine for 04/2017 - 09/2017 Season: Yes Influenza Administration Date for 04/2017 - 09/2017 Season: 04/26/17 Physical Exam - Vital signs Vitals: Temp Pulse Resp BP Pulse Ox 101.3 F H 98 20 132/61 H 96 01/24/18 17:39 01/24/18 17:39 01/24/18 17:39 01/24/18 17:39 01/24/18 17:39 Course - Vital Signs Vital signs: Temp Pulse Resp BP Pulse Ox 101.3 F H 98 20 132/61 H 96 01/24/18 17:39 01/24/18 17:39 01/24/18 17:39 01/24/18 17:39 01/24/18 17:39 Doctor's Discharge - Discharge Referrals: GEORGE SOUSA MD [Primary Care Provider] - Follow up as needed
--- NOTE | 2018-01-24 18:24 | RADIOLOGY REPORT (SQ) ---
EXAM DESCRIPTION: CHEST SINGLE VIEW COMPLETED DATE/TIME: 01/24/2018 6:17 pm REASON FOR STUDY: chemo, fever COMPARISON: None. EXAM PARAMETERS: NUMBER OF VIEWS: One view. TECHNIQUE: Single frontal radiographic view of the chest acquired. RADIATION DOSE: NA LIMITATIONS: None. FINDINGS: LUNGS AND PLEURA: No opacities, masses or pneumothorax. No pleural effusion. MEDIASTINUM AND HILAR STRUCTURES: No masses. Contour normal. HEART AND VASCULAR STRUCTURES: Heart normal in size. Normal vasculature. BONES: No acute findings. HARDWARE: Venous access catheter at the cavoatrial junction. OTHER: No other significant finding. IMPRESSION: NO ACUTE RADIOGRAPHIC FINDING IN THE CHEST. TECHNICAL DOCUMENTATION: JOB ID: [id number] [employer]- All Rights Reserved Reading location - IP/workstation name: [email or web address]
[2018-01-24 18:32] LABS: PROTHROMBIN TIME 11.5 SEC (11.4-15.4)
[2018-01-24 18:38] LABS: VENOUS BLOOD BASE EXCESS 1.7 mmol/L; VENOUS BLOOD HCO3 26.6 mmol/L (20-32); VENOUS BLOOD PH 7.41 (7.30-7.42)
[2018-01-24 18:39] LABS: ABSOLUTE EOSINOPHILS # (AUTO) 0.1 10^3/uL (0.0-0.6); ABSOLUTE LYMPHOCYTES (AUTO) 0.6 10^3/uL (0.5-4.7); ABSOLUTE MONOCYTES (AUTO) 0.1 10^3/uL (0.1-1.4); ABSOLUTE NEUT (AUTO) 1.7 10^3/uL (1.7-8.2); BASOPHILS % (AUTO) 0.3 % (0-2); EOSINOPHILS % (AUTO) 1.9 % (0-6); HEMATOCRIT 27.9 % (36.0-47.0); HEMOGLOBIN 10.1 g/dL (12.0-15.5); LYMPHOCYTES % (AUTO) 24.9 % (13-45); MEAN CORPUSCULAR HEMOGLOBIN 35.6 pg (27.0-33.4); MEAN CORPUSCULAR HGB CONC 36.4 g/dL (32.0-36.0); MEAN CORPUSCULAR VOLUME 98 fl (80-97); MONOCYTES % (AUTO) 5.7 % (3-13); RED BLOOD COUNT 2.85 10^6/uL (3.72-5.28); RED CELL DISTRIBUTION WIDTH 22.6 % (11.5-14.0); SEGMENTED NEUTROPHILS % (AUTO) 67.2 % (42-78); TOTAL CELLS COUNTED % (AUTO) 100 %; WHITE BLOOD COUNT 2.6 10^3/uL (4.0-10.5)
[2018-01-24 19:00] LABS: PLATELET COUNT 81 10^3/uL (150-450)
[2018-01-24 19:01] LABS: ALANINE AMINOTRANSFERASE 46 U/L (9-52); ALBUMIN 3.7 g/dL (3.5-5.0); ALKALINE PHOSPHATASE 78 U/L (38-126); ANION GAP 10 (5-19); ASPARTATE AMINO TRANSFERASE 28 U/L (14-36); BILIRUBIN,DIRECT 0.4 mg/dL (0.0-0.4); BILIRUBIN,TOTAL 0.7 mg/dL (0.2-1.3); BLOOD UREA NITROGEN 11 mg/dL (7-20); CALCIUM 8.7 mg/dL (8.4-10.2); CARBON DIOXIDE 26 mmol/L (22-30); CHLORIDE 104 mmol/L (98-107); GLUCOSE 109 mg/dL (75-110); POTASSIUM 4.1 mmol/L (3.6-5.0); SODIUM 140.1 mmol/L (137-145); TOTAL PROTEIN 6.6 g/dL (6.3-8.2)
--- NOTE | 2018-01-24 19:11 | EKG REPORT ---
SEVERITY:- NORMAL ECG - SINUS RHYTHM : Confirmed by: Martha Carter MD 24-Jan-2018 19:09:53
[2018-01-24] MEDS ORDERED: ACETAMINOPHEN 325 MG TABLET PO ONE (19:35)
--- NOTE | 2018-01-24 19:37 | ER Document Report ---
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 The patient's only complaint is feeling generally weak and having a fever. Family at the bedside states this appears similar to when she was hospitalized approximately 5 weeks ago for having a fever. She has not taken anything to treat her fever as she states that she was instructed not to do so by her oncologist. She denies any cough, dysuria, abdominal pain, vomiting, diarrhea or headache. Nothing is worsened her symptoms since onset she states did start yesterday and have overall been unchanged since that time. She has contacted her oncologist who informed her that she needed to come to the emergency department. TRAVEL OUTSIDE OF THE [place] IN LAST 30 DAYS: No - Related Data Allergies/Adverse Reactions: cefepime Allergy (Verified 01/24/18 17:46) Coma sulfamethoxazole [From Septra] Allergy (Verified 01/24/18 17:46) Coma trimethoprim [From Septra] Allergy (Verified 01/24/18 17:46) Coma Past Medical History - General Information source: Patient, Relative, [facility] Records - Social History Smoking Status: Former Smoker Chew tobacco use (# tins/day): No Frequency of alcohol use: None Drug Abuse: None Lives with: Family Family History: Reviewed & Not Pertinent Patient has suicidal ideation: No Patient has homicidal ideation: No - Past Medical History Cardiac Medical History: Reports: Hx Hypercholesterolemia Denies: Hx Coronary Artery Disease, Hx Heart Attack, Hx Hypertension Pulmonary Medical History: Denies: Hx Asthma, Hx Bronchitis, Hx COPD, Hx Pneumonia Neurological Medical History: Denies: Hx Cerebrovascular Accident, Hx Seizures Endocrine Medical History: Reports: Hx Diabetes Mellitus Type 2, Hx Hypothyroidism Renal/ Medical History: Denies: Hx Peritoneal Dialysis Musculoskeltal Medical History: Denies Hx Arthritis Psychiatric Medical History: Denies: Hx Depression Past Surgical History: Reports: Hx Cholecystectomy, Hx Hysterectomy, Hx Pancreatic Surgery - Duct stent, Hx Tubal Ligation, Other - Pancreatic stent, port placement. - Immunizations Hx Diphtheria, Pertussis, Tetanus Vaccination: No Hx Pneumococcal Vaccination: 04/26/17 Review of Systems - Review of Systems Notes: Constitutional: Positive for fever. HENT: Negative for sore throat. Eyes: Negative for visual changes. Cardiovascular: Negative for chest pain. Respiratory: Negative for shortness of breath. Gastrointestinal: Negative for abdominal pain, vomiting or diarrhea. Genitourinary: Negative for dysuria. Musculoskeletal: Negative for back pain. Skin: Negative for rash. Neurological: Negative for headaches, weakness or numbness. 10 point ROS negative except as marked above and in HPI. Physical Exam - Vital signs Vitals: Temp Pulse Resp BP Pulse Ox 101.3 F H 98 20 132/61 H 96 01/24/18 17:39 01/24/18 17:39 01/24/18 17:39 01/24/18 17:39 01/24/18 17:39 Interpretation: Febrile Notes: PHYSICAL EXAMINATION: GENERAL: Well-appearing, well-nourished and in no acute distress. HEAD: Atraumatic, normocephalic. EYES: Pupils equal round and reactive to light, extraocular movements intact, sclera anicteric, conjunctiva are normal. ENT: nares patent, oropharynx clear without exudates. Moist mucous membranes. NECK: Normal range of motion, supple without lymphadenopathy LUNGS: Breath sounds clear to auscultation bilaterally and equal. No wheezes rales or rhonchi. HEART: Regular rate and rhythm without murmurs ABDOMEN: Soft, nontender, normoactive bowel sounds. No guarding, no rebound. No masses appreciated. EXTREMITIES: Normal range of motion, no pitting or edema. No cyanosis. NEUROLOGICAL: No focal neurological deficits. Moves all extremities spontaneously and on command. PSYCH: Normal mood, normal affect. SKIN: Warm, Dry, normal turgor, no rashes or lesions noted. Course - Re-evaluation Re-evalutation: 01/24/18 19:36 Presentation of the patient receiving active chemotherapy for a allow with a fever to 101.3F without any localizing symptoms other than feeling generally ill and weak. She was seen at the end of November for similar occurrence at that time had a urinary tract infection. She is not neutropenic today. Urinalysis is pending. Cultures have been drawn. Will discuss with her primary oncologist after all results have been returned regarding disposition planning. Anticipate the patient will be safe for discharge given that she is not neutropenic and otherwise well-appearing with reassuring vitals. 01/24/18 22:09 Patient's laboratories show a possible urinary tract infection but are otherwise unremarkable. I have discussed with Dr. Rhoades the patient's oncologist who is agreeable to discharge home on levofloxacin given her cephalosporin allergy. The patient feels much improved after defervescence. She has tolerated oral intake without any difficulty. I have clearly instructed her not to take any additional chemotherapeutic agents until she sees Dr. Rohades in the morning per Dr. Rhoades instruction. At this time will discharge with return precautions and follow-up recommendations. Verbal discharge instructions given a the bedside and opportunity for questions given. Medication warnings reviewed. Patient is in agreement with this plan and has verbalized understanding of return precautions and the need for primary care follow-up in the next 24-72 hours. - Vital Signs Vital signs: Temp Pulse Resp BP Pulse Ox 98.1 F 98 19 114/49 L 99 01/24/18 22:34 01/24/18 17:39 01/24/18 22:34 01/24/18 22:34 01/24/18 22:34 - Laboratory Result Diagrams: 01/24/18 18:16 01/24/18 18:16 Laboratory results interpreted by me: 01/24/18 01/24/18 18:16 19:47 WBC 2.6 L RBC 2.85 L Hgb 10.1 L Hct 27.9 L MCV 98 H MCH 35.6 H MCHC 36.4 H RDW 22.6 H Plt Count 81 L Urine Glucose (UA) 150 H Urine Ketones TRACE H Urine Urobilinogen 2.0 H Ur Leukocyte Esterase SMALL H - Diagnostic Test Radiology reviewed: Image reviewed, Reports reviewed Radiology results interpreted by me: 01/25/18 04:01 Chest x-ray: No acute infiltrate or pneumothorax - EKG Interpretation by Me Additional EKG results interpreted by me: 01/25/18 04:01 Sinus rhythm. Rate 79. No ST elevations or depressions. QTC is 422. Discharge - Discharge Clinical Impression: Fever Qualifiers: Fever type: unspecified Qualified Code(s): R50.9 - Fever, unspecified UTI (urinary tract infection) Qualifiers: Urinary tract infection type: acute cystitis Hematuria presence: without hematuria Qualified Code(s): N30.00 - Acute cystitis without hematuria ALL (acute lymphoblastic leukemia) Qualifiers: Leukemia Active/Remission status: without remission Qualified Code(s): C91.00 - Acute lymphoblastic leukemia not having achieved remission Condition: Good Disposition: HOME, SELF-CARE Additional Instructions: You were seen today for a fever and your labs do suggest that you likely have a urinary tract infection. will see you tomorrow in the office. Please do not take any additional chemotherapy drugs until you see her and are cleared to begin resuming these medications. Please take the Keflex that has been prescribed until it is completed. Return if you develop persistent vomiting, severe abdominal pain, confusion, or any other symptoms that are worrisome to you. Prescriptions: Levofloxacin [Levaquin 500 mg Tablet] 500 mg PO DAILY #7 tablet Referrals: GEORGE RHOADES MD [Primary Care Provider] - Follow up as needed
[2018-01-24 20:19] LABS: APPEARANCE,URINE SLIGHTLY-CLOUDY; BILIRUBIN,URINE NEGATIVE (NEGATIVE); COLOR,URINE YELLOW; GLUCOSE, URINE 150 mg/dL (NEGATIVE); KETONES,URINE TRACE mg/dL (NEGATIVE); LEUKOCYTE ESTERASE,URINE SMALL (NEGATIVE); NITRITE,URINE NEGATIVE (NEGATIVE); PROTEIN,URINE NEGATIVE (NEGATIVE); URINE SPECIFIC GRAVITY 1.015
[2018-01-24 22:47] VITALS: BP 114/49
== END 2018-01-24 22:47 | disposition home or self-care (01) ==
LOC: ER 17:30
DX: C91.00 Acute lymphoblastic leukemia not having achieved remission (principal); N30.00 Acute cystitis without hematuria; R50.9 Fever, unspecified; R53.1 Weakness; Z79.899 Other long term (current) drug therapy; Z87.891 Personal history of nicotine dependence; E11.9 Type 2 diabetes mellitus without complications
CPT/HCPCS: 93005; 36591; 99284; 96365; 36415; 87040; 87086; 85025; 85610; 80053; 81001; 82803; 83605; 71045; 93010; J0743; A9270; J7030